=== PATIENT | female | born 1995 | race Asian ===

== ENCOUNTER 2022-07-05 11:59 | Emergency (ER) | payer SELFPAY ==
[2022-07-05 12:09] VITALS: BP 124/79; PULSE 79; RESP 18; TEMP 36.6; O2SAT 100
[2022-07-05 12:30] LABS: Bilirubin Negative (Negative); Blood Negative (Negative); Clarity Clear (Clear); Glucose Negative (Negative); Ketones Negative (Negative); Leukocyte Esterase Negative (Negative); Nitrite Negative (Negative); Specific Gravity 1.025 (1.005-1.025); Urobilinogen 0.2 EU/dL (Up TO 0.2)
--- NOTE | 2022-07-05 12:31 | W.ED.GENAD ---
Discharge Plan Disposition Patient Disposition: HOME Condition: Stable Discharge Details Clinical Impression: Pelvic pain Primary Care Provider: [place],Local ED Provider: Elaine Dunlap Home Meds and New Rx's Prescriptions: New doxycycline hyclate 100 mg tablet 100 mg PO BID 7 Days Qty: 14 0RF Discharge Instructions Instructions: Pelvic Pain in Women (ED) Additional Instructions: At this time the cultures are pending. Take the antibiotics twice daily as directed for the next 7 days. Take it with yogurt or probiotic. Do not take on an empty stomach. Follow up with primary care provider in 3-5 days. Return to ED sooner if any worsening or concerns. Increase oral fluids. Please take Tylenol or Ibuprofen with food every 4-6 hours as needed for pain and swelling. No significant lesions or masses were observed during the examination. If you have continued symptoms please make an appointment with women's wellness. Referrals: Myra Meredith CNM [[facility] NURSE RIVET HAMMER MACHINE OPERATOR] - 3 days Discharge Data Discharge Date/Time-TO BE ENTERED AT DEPARTURE: 07/05/22 13:48 Medical Decision Making 26-year-old female presents to the ER with chief complaint of vaginal pain lower abdominal pain she has been ongoing for the last 3 days. Patient presents with her significant other she noticed a bump on her vagina which she describes as a hernia. test is negative, urinalysis shows no leukocytes no nitrites no evidence of UTI. Gonorrhea Chlamydia and vaginal pathogen ordered. 53: Pelvic exam performed with Oma Schwab RN as witness, patient tolerated well. There was some white discharge, no significant lesions or bleeding. No suspicious lesions or masses noted. No adnexal tenderness. Abdomen is soft nontender with palp Doxycycline ordered pending culture results. Vaginal pathogen swab was no good per Lab due to vial being broken, sample thrown out. This text was generated using [employer] dictation system, please disregard any oddities of phrase or misspellings. HPI General Mode of arrival: ambulatory. Date/Time Provider Initiated Documentation: 07/05/22 12:16. Limitations to Documentation: no limitations. Information obtained by: patient, family (Hisband) and RN notes reviewed. HPI Narrative: 26-year-old female presents to the ER with chief complaint of vaginal pain lower abdominal pain she has been ongoing for the last 3 days. Patient presents with her significant other she noticed a bump on her vagina which she describes as a hernia. Patient reports that she is having cramping in her vagina. They have noticed a yellow discharge. Related Data Home Medications Medication Instructions Recorded Confirmed doxycycline hyclate 100 mg tablet 100 mg PO BID 7 days #14 tabs 07/05/22 Previous Rx's Medication Instructions Recorded doxycycline hyclate 100 mg tablet 100 mg PO BID 7 days #14 tabs 07/05/22 General Stated Complaint: FOREST OFFICER VLADIMIR: 3 Review of Systems All systems reviewed & are unremarkable except as noted in HPI and below Genitourinary Genitourinary: Denies dysuria, Reports pelvic pain and Reports vaginal discharge PFSH All Active Problems (Updated 07/05/22 @ 13:10 by Elaine Dunlap NP) Pelvic pain (Acute) Social History Smoking/Tobacco Use Status: Unknown Smoking risk assessment performed?: Yes Exam Const General: cooperative, healthy appearing and comfortable Nutritional Appearance: average body habitus and well nourished Orientation: alert, awake and oriented x3 External Female Exam: normal external appearance, normal appearance of the urethra, no external swelling and no lesions Speculum Exam - Vagina: normal appearance of the vagina, abnormal vaginal discharge white, not erythematous, No vaginal bleeding and no masses Speculum Exam - Cervix: normal appearance of the cervix, closed and normal vervical discharge Bimanual Exam- Vagina & Uterus: normal bimanual exam, normal palpation and uterine size normal Bimanual Exam- Adnexa, other: normal adnexae OB/External & Speculum: No vaginal bleeding Course Vital Signs Vital signs: Vital Signs Temperature 36.6 C 07/05/22 12:09 Pulse 79 07/05/22 12:09 Respiratory Rate 18 07/05/22 12:09 Blood Pressure 124/79 07/05/22 12:09 Pulse Oximetry 100 07/05/22 12:09 Temperature 36.6 C 07/05/22 12:09 Temperature Source Temporal Artery Scan 07/05/22 12:09 Pulse 79 07/05/22 12:09 Respiratory Rate 18 07/05/22 12:09 Blood Pressure 124/79 07/05/22 12:09 Pulse Oximetry 100 07/05/22 12:09 Lab/Test Results Lab/Test Results: Laboratory Tests Range/Units 07/05/22 12:15 Urine Color (Yellow) Yellow Urine Clarity (Clear) Clear Urine pH (5-8) 7.0 Ur Specific [place] (1.005-1.025) 1.025 Urine Protein (Negative) mg/dL Negative Urine Ketones (Negative) mg/dL Negative Urine Blood (Negative) Negative Urine Nitrite (Negative) Negative Urine Bilirubin (Negative) Negative Urine Urobilinogen (Up TO 0.2) EU/dL 0.2 Ur Leukocyte Esterase (Negative) Negative Urine Glucose (Negative) mg/dL Negative POC- Test(urine) Negative
[2022-07-05 13:45] VITALS: BP 124/79; PULSE 79; RESP 18; TEMP 36.6; O2SAT 100
--- NOTE | 2022-07-05 14:58 | NUR.NOTE ---
Nursing Note: Referral to Care Management for needs PCP; for establish care with routine follow up.
--- NOTE | 2022-07-07 09:15 | NUR.NOTE ---
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 Patient could be heard in the background. Test results have not been completed. They are a send out and take 3 to 5 working days, and he was told this. He then went on to complain about the patient visit, that the DRILL INSTRUCTOR did not know what she was doing, that she gave medication before the tests results were back and that he did not want the patient lifting and wanted a note regarding this. I told him that they should have explained the lifting at the visit to the practitioner, and that I could not answer to his concerns about the visit. I offered to him to speak to Health And Physical Education Teacher. He then said that he should have taken her to [place] instead of here. I told him to call Tuesday for the results that they should be back by then.
--- NOTE | 2022-07-07 10:08 | W.ED.FU ---
Date of service: 07/07/22 Time of Service: 10:08 Follow Up Plan: Patient and significant other first call the ER and then subsequently presented to the ER requesting a work note. She is not requesting to be seen here in the ER at this time. Reports that she is still not feeling well and would like a work note provided, will provide a work note for today. Encouraged to return to the ER for new or worsening symptoms
--- NOTE | 2022-07-07 10:14 | NUR.NOTE ---
Nursing Note: See Zari Calzada addendum regarding work note. Work note given to patient and told to f/u with PCP for further ongoing care. 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 Explained that a referral was given to Care Management to get her a PCP appt. and that it would not take as long for the CM team as it might for them. To call the CM team to see where they are at with getting her a PCP appt.
[2022-07-07 11:44] LABS: Chlamydia Result Invalid (Negative); GC Result Invalid (Negative)
== END 2022-07-05 13:48 | disposition home or self-care (01) ==
PROVIDERS: Emergency Provider Registered Nurse Emergency
DX: R10.2 Pelvic and perineal pain (principal)
CPT/HCPCS: 81025; 87491; 87591; 99283; 81003; 87480; 87510; 87660; 99282

== ENCOUNTER 2022-09-27 16:52 | Outpatient (REF) | payer MEDICAID, SELFPAY ==
[2022-09-27 18:35] LABS: Abs Immature Grans 0.07 10^3/uL (0.0-0.06); Absolute Basophil Count 0.07 10^3/uL (0.0-0.2); Absolute Lymphocyte Count 2.77 10^3/uL (1.2-3.4); Absolute Monocyte Count 0.99 10^3/uL (0.1-0.8); Absolute Neutrophil Count 7.94 10^3/uL (1.2-6.7); Basophils % 0.6; Eosinophils % 1.7; HCT 44.3 % (36.0-46.0); HGB 14.8 g/dL (11.2-15.7); Immature Grans % 0.6; MCH 30.8 pg (27.0-33.0); MCHC 33.4 % (32.0-36.0); MCV 92 fL (80-95); MPV 11.2 fL (8.0-11.0); Monocytes % 8.2; Neutrophils % 65.9; Platelet Count 298 10^3/uL (130-400); RDW-SD 41.1 fL; WBC 12.05 10^3/uL (4.4-10.8)
== END 2022-09-27 16:53 | disposition home or self-care (01) ==
LOC: LBN 16:52
PROVIDERS: Visit Provider Nurse Practitioner Family
DX: N91.2 Amenorrhea, unspecified (principal); R42 Dizziness and giddiness
CPT/HCPCS: 84702; 85025

== ENCOUNTER → 2022-10-05 02:44 | Outpatient (CLI) | payer MEDICAID, SELFPAY ==
--- NOTE | 2022-10-05 09:15 | DI.US_ITS ---
Exam(s) US OB 1ST TRIMESTER EXAM: US OB 1ST TRIMESTER CLINICAL HISTORY: AMENORRHEA, N91.2. COMPARISON: No exams were available for comparison TECHNIQUE: Transabdominal Transvaginal first trimester obstetrical ultrasound performed. FINDINGS: Sonographic images demonstrate a single intrauterine gestation. A yolk sac and pole are seen. Sonographically assessed gestational age based upon crown-rump length of 1.6 cm is: 8 weeks 0 days Estimated date of delivery based on this ultrasound is: 05/17/2023. heart rate motion is Dopplered at: 169 bpm. No free fluid identified. Pelvic Measurments Uterus: 8.8 x 5.6 x 7.8 cm Rt Ovary: 2.4 x 1.5 x 1.9 cm Lt Ovary: The left ovary was not visualized sonographically. No left at necks all masses are seen. IMPRESSION: Single live intrauterine gestation as above. Estimated gestational age is 8 weeks 0 days. DATA REPOSITORY:
== END ==
PROVIDERS: Visit Provider Nurse Practitioner Family
DX: O20.9 Hemorrhage in early pregnancy, unspecified (principal)
CPT/HCPCS: 76801

== ENCOUNTER 2022-11-09 15:47 | Outpatient (REF) | payer MEDICAID, SELFPAY ==
--- NOTE | 2022-11-09 14:26 | PAPFT_PTH ---
PATIENT: Hannah Feliciano LOC: [facility] U#:[id number] AGE/SX: 26/F ROOM: RE11/09/[address]: Myra Sandhu : 1995 BED: DIS: 11/09/2022 SPEC #: [id number] RECD: 11/09/22 17:26 STATUS: MURPHY REChase #: [id number] CELINA: 11/09/22 14:[address]: Myra Sandhu DEPT: [facility] Cytology RECD BY: Nishi Gil ENTERED: 11/09/22 17:26 SP TYPE: PAPFT CHANO DR: Katy Garcia Tissues: 1 - CX/ENDOCX FOR PAP SMEARS Procedures: PAP THIN PREP/UVM Screening Comments: [id number]
[2022-11-11 13:22] LABS: Chlamydia Result Negative (Negative); GC Result Negative (Negative)
== END 2022-11-09 15:48 | disposition home or self-care (01) ==
LOC: LBN 15:47
PROVIDERS: Visit Provider Advanced Practice Midwife
DX: Z34.91 Encounter for supervision of normal pregnancy, unspecified, first trimester (principal); Z11.3 Encounter for screening for infections with a predominantly sexual mode of transmission; Z12.4 Encounter for screening for malignant neoplasm of cervix; Z3A.13 13 weeks gestation of pregnancy
CPT/HCPCS: 87491; 87591; 88142; 87086; 87480; 87510; 87660

== ENCOUNTER 2022-11-09 20:14 | Outpatient (CLI) | payer MEDICAID, SELFPAY ==
[2022-11-09 15:44] LABS: Panorama Kit Sent via Fed Ex
[2022-11-09 15:50] LABS: Abs Immature Grans 0.04 10^3/uL (0.0-0.06); Absolute Basophil Count 0.04 10^3/uL (0.0-0.2); Absolute Eosinophil Count 0.13 10^3/uL (0.0-0.7); Absolute Lymphocyte Count 2.28 10^3/uL (1.2-3.4); Absolute Monocyte Count 0.71 10^3/uL (0.1-0.8); Basophils % 0.3; Eosinophils % 1.1; HCT 40.1 % (36.0-46.0); HGB 13.7 g/dL (11.2-15.7); Immature Grans % 0.3; Lymphocytes % 19.1; MCH 30.5 pg (27.0-33.0); MCHC 34.2 % (32.0-36.0); MCV 89 fL (80-95); MPV 10.3 fL (8.0-11.0); Monocytes % 5.9; Neutrophils % 73.3; Platelet Count 269 10^3/uL (130-400); RBC 4.49 10^6/uL (3.93-5.22); RDW 11.7 % (11.7-14.6); RDW-SD 37.8 fL; WBC 11.95 10^3/uL (4.4-10.8)
[2022-11-09 15:55] LABS: Absolute Neutrophil Count 8.76 10^3/uL (1.2-6.7)
[2022-11-09 16:48] LABS: TSH (W/Ref FT4) 0.81 uIU/mL (0.36-3.74)
[2022-11-10 10:02] LABS: Hepatitis C Ab w Rflx HCV PCR Negative (Negative)
[2022-11-10 10:09] LABS: Hepatitis B Surface Ag Negative (Negative)
[2022-11-10 10:28] LABS: HIV-1/2 Ag & Ab Screen Negative (Negative)
[2022-11-10 10:36] LABS: Varicella IgG Antibody Positive (See Note)
[2022-11-10 10:45] LABS: Rubella IgG Ab (UVM) Positive (See Note)
[2022-11-11 15:43] LABS: Syphilis IgG w/Reflex Nonreactive (Nonreactive)
[2022-12-15 13:30] LABS: Lab Add On Test DONE
== END 2022-11-09 20:15 | disposition home or self-care (01) ==
LOC: LBO 20:14
PROVIDERS: Visit Provider Advanced Practice Midwife
DX: Z34.91 Encounter for supervision of normal pregnancy, unspecified, first trimester; Z83.49 Family history of other endocrine, nutritional and metabolic diseases
CPT/HCPCS: 36415; 86787; 86803; 86850; 86900; 86901; 87340; 87389; 84443; 85025; 86762; 86780

== ENCOUNTER 2023-02-22 02:58 | Outpatient (CLI) | payer MEDICAID, SELFPAY ==
[2023-02-22 11:30] LABS: Abs Immature Grans 0.06 10^3/uL (0.0-0.06); Absolute Basophil Count 0.05 10^3/uL (0.0-0.2); Absolute Lymphocyte Count 2.08 10^3/uL (1.2-3.4); Absolute Monocyte Count 1.03 10^3/uL (0.1-0.8); Basophils % 0.4; Eosinophils % 1.2; HCT 37.2 % (36.0-46.0); HGB 12.5 g/dL (11.2-15.7); Immature Grans % 0.5; Lymphocytes % 16.1; MCH 30.8 pg (27.0-33.0); MCHC 33.6 % (32.0-36.0); MCV 92 fL (80-95); MPV 10.2 fL (8.0-11.0); Neutrophils % 73.8; Platelet Count 273 10^3/uL (130-400); RBC 4.06 10^6/uL (3.93-5.22); RDW 12.1 % (11.7-14.6); RDW-SD 40.8 fL; WBC 12.93 10^3/uL (4.4-10.8)
[2023-02-22 11:34] LABS: Absolute Eosinophil Count 0.16 10^3/uL (0.0-0.7); Absolute Neutrophil Count 9.54 10^3/uL (1.2-6.7)
[2023-02-22 11:39] LABS: Glucose,1 Hr (Glucola) 96 mg/dL (80-140)
[2023-02-22 11:44] LABS: ALT 17 U/L (14-59); AST 11 U/L (15-37); Albumin 2.9 g/dL (3.4-5.0); Alkaline Phosphatase 105 U/L (46-116); Anion Gap 9.7 mmol/L (3-11); BUN 5 mg/dL (7-18); Bilirubin, Total 0.2 mg/dL (0.2-1.0); CO2 23.3 mmol/L (21.0-32.0); CREATININE 0.5 mg/dL (0.55-1.02); Calcium 9.1 mg/dL (8.5-10.1); Chloride 105 mmol/L (98-107); Estimated GFR 131.75 (mL/min/1.73m2); Glucose 99 mg/dL (74-106); Potassium 3.8 mmol/L (3.5-5.1); Sodium 138 mmol/L (136-145); Total Protein 6.7 g/dL (6.4-8.2)
== END 2023-02-22 02:59 | disposition home or self-care (01) ==
LOC: LBO 02:58
PROVIDERS: Visit Provider Obstetrics & Gynecology
DX: O34.219 Maternal care for unspecified type scar from previous cesarean delivery; Z3A.28 28 weeks gestation of pregnancy
CPT/HCPCS: 36415; 80053; 82950; 85025

== ENCOUNTER 2023-02-22 11:24 | Outpatient (REF) | payer MEDICAID, SELFPAY ==
[2023-02-22 12:40] LABS: COMMENT (LAB VIEW ONLY) 158.24 mg/dL; PROTEIN 28.8 mg/dL; Prot/Crea Ur Ratio 0.18
[2023-02-22 12:43] LABS: *AMPHETAMINES SCREEN URINE Negative (Negative); *BARBITURATES SCREEN URINE Negative (Negative); *BENZODIAZEPINES SCREEN URINE Negative (Negative); Cannabinoids THC Negative (Negative); Cocaine Screen,Urine Negative (Negative); METHADONE URINE SCREEN Negative (Negative); OPIATES URINE SCREEN Negative (Negative); Tricyclic Antidepressants Negative (Negative)
[2023-02-26 15:45] LABS: Buprenorphine Negative ng/mL (Cutoff: 5.0)
== END 2023-02-22 11:25 | disposition home or self-care (01) ==
LOC: LBN 11:24
PROVIDERS: Visit Provider Obstetrics & Gynecology
DX: O13.3 Gestational [pregnancy-induced] hypertension without significant proteinuria, third trimester (principal); Z3A.28 28 weeks gestation of pregnancy
CPT/HCPCS: 80307; 80348; 82565; 84156

== ENCOUNTER 2023-02-25 20:49 | Outpatient (CLI) | payer MEDICAID, SELFPAY ==
[2023-02-25 20:20] VITALS: BP 124/62; PULSE 81; RESP 18; TEMP 36.8
[2023-02-25 20:30] VITALS: BP 124/62; PULSE 81; RESP 18; TEMP 36.8
[2023-02-25] MEDS: Ketorolac 15 MG/ML VIAL IVP (21:15)
[2023-02-25] MEDS: Ondansetron 4 MG/2 ML VIAL IVP (21:15)
[2023-02-25 21:19] LABS: HCT 33.6 % (36.0-46.0); HGB 11.5 g/dL (11.2-15.7); MCH 31.3 pg (27.0-33.0); MCHC 34.2 % (32.0-36.0); MCV 92 fL (80-95); MPV 10.4 fL (8.0-11.0); Platelet Count 251 10^3/uL (130-400); RBC 3.67 10^6/uL (3.93-5.22); RDW 12.1 % (11.7-14.6); WBC 12.96 10^3/uL (4.4-10.8)
[2023-02-25] MEDS: Lactated Ringers 1,000 ML 125 ML IV (21:19)
[2023-02-25 21:35] LABS: ALT 16 U/L (14-59); AST 12 U/L (15-37); Albumin 2.7 g/dL (3.4-5.0); Alkaline Phosphatase 99 U/L (46-116); BUN 7 mg/dL (7-18); Bilirubin, Total 0.1 mg/dL (0.2-1.0); CREATININE 0.5 mg/dL (0.55-1.02); Calcium 8.8 mg/dL (8.5-10.1); Chloride 104 mmol/L (98-107); Estimated GFR 131.75 (mL/min/1.73m2); Glucose 95 mg/dL (74-106); Potassium 3.4 mmol/L (3.5-5.1); Sodium 135 mmol/L (136-145); Total Protein 6.5 g/dL (6.4-8.2)
[2023-02-25 22:20] LABS: COMMENT (LAB VIEW ONLY) 29.71 mg/dL; PROTEIN < 6.0 mg/dL
--- NOTE | 2023-02-25 22:58 | HPE_ITS ---
Date of service: 02/25/23 Time of Service: 22:58 Assessment and Plan Assessment and plan (1) Nausea and vomiting during : Status: Acute Assessment and plan: No evidence of gastrointestinal infection. Patient was instructed to call with further episodes of nausea and vomiting and she will be prescribed ondansetron as needed. (2) Elevated blood pressure complicating in second trimester, antepartum: Status: Acute Assessment and plan: Evaluations 3 days apart showed no evidence of preeclampsia. She will return to the office March 09 or as needed. (3) Headache in : Status: Acute Assessment and plan: Secondary to dehydration after poor fluid intake for 24 hours secondary to nausea and vomiting. Headache resolved with 1 dose of IV Toradol during her period of observation on the center. History of Present Illness History of Present Illness Chief Complaint: Headache, nausea and vomiting at 28 W3D EGA Narrative: Patient is a 27-year-old G3, P1 female currently 28W3D EGA who called the on- call provider to report a persistent diffuse headache not responsive to Tylenol that she had taken during the day. She also complains of nausea and vomiting. Patient denied any epigastric pain or lower extremity swelling she had been evaluated for a mildly elevated blood pressure of 135/80 at the time of her visit at 28 weeks. She was observed on the center had a reactive NST and her blood pressure normalized during her period of observation. CMP CBC urine protein creatinine ratio were all normal. Review of Systems All systems reviewed & are unremarkable except as noted in HPI and below Constitutional Constitutional: Reports headache(s) (Not localized not associated with aura), Reports malaise and Reports poor appetite ENT Ears, Nose, Mouth, and Throat: Reports headache(s) (Not localized not associated with aura) Gastrointestinal Gastrointestinal: Denies abdominal pain, Denies cramping, Reports nausea and Reports vomiting Genitourinary Genitourinary: Reports system reviewed and no additional complaints, except as documented Neurologic Neurologic: Reports headache(s) (Not localized not associated with aura) Comments: No scotomata patient does feel somewhat lightheaded when standing from a sitting position. Psychiatric Psychiatric: Reports system reviewed and no additional complaints, except as documented PFSH All Active Problems (Updated 02/25/23 @ 23:15 by Vandana Wu MD) Headache in (Acute) Elevated blood pressure complicating in second trimester, antepartum (Acute) Nausea and vomiting during (Acute) Prior with demise (Acute) Transfusion history (Acute) 5 units after demise Family history of thyroid disease (Acute) Previous delivery affecting (Acute) (Acute) Medical History (Updated 02/25/23 @ 23:15 by Vandana Wu MD) Alcohol abuse, in remission Surgical History (Updated 11/09/22 @ 15:24 by Myra Sandhu CNM) Previous section Family History (Updated 11/09/22 @ 15:25 by Myra Sandhu CNM) Maternal Grandmother Thyroid disease Heart disease enlarged heart Father Heart disease Hepatitis Social History Smoking/Tobacco Use Status: Unknown Smoking risk assessment performed?: Yes History History 3 Para 1 Hx # Term Pregnancies Multiple births Hx # Pregnancies 1 Ectopic pregnancies AB induced Hx Number of Living Children 1 AB spontaneous Past Pregnancies Del. Date GA/Weeks # Preg Succ Route Wgt Sex Labor Lgth Anesth esia Location [facility] 02/28/14 Yes No [facility] 09/15/17 41 No Yes [facility] Delivery Date: 02/28/14 Last Updated by: Myra Sandhu CNM alcoholic, demise with hemorrhage, transfused for 5 units Delivery Date: 09/15/17 Last Updated by: Myra Sandhu CNM scheduled for post dates. vertical incision Meds Allergies and Home Medications Allergies Allergy/AdvReac Type Severity Reaction Status Date / Time No Known Allergies Allergy Verified 02/22/23 10:31 Home Medications Medication Instructions Recorded Confirmed Type vitamin with calcium 1 tab PO DAILY #90 tabs 11/09/22 02/01/23 Rx no.72-iron 27 mg-folic acid 1 mg tablet Exam Narrative Exam Narrative: Patient arrived on the center and had labs drawn and IV hydration started. She received 4 mg of ondansetron IV and 15 mg of Toradol IV. Her nausea and headache subsided and she was able to tolerate liquids. Const General: no acute distress Nutritional Appearance: well nourished Orientation: alert, awake and oriented x3 Resp Effort & Inspection: normal respiratory effort Auscultation: clear to auscultation bilaterally Cardio Rate: regular rate Rhythm: regular rhythm GI Inspection: normal to inspection (Gravid.) Palpation: no hepatosplenomegaly and nontender (No focal tenderness.) Rectal Exam - female: deferred General: deferred Other: heart rate 140 range with reactive NST category 1. No contractions on ex ternal tocometer Skin General skin exam: no rashes or lesions noted (Tattoos) Neuro General: deep tendon reflexes 2+ bilaterally (1 beat of clonus bilaterally) Cognition: normal cognition Speech: speech normal Gait: normal gait Extrem General: normal to inspection, no pedal edema and no calf tenderness Psych Appearance: grossly normal Mental Status: mental status grossly normal Speech and Movement: speech and movement normal Mood: congruent mood Affect: normal affect Results Labs 02/25/23 21:14 02/25/23 21:14 Labs: Laboratory Results - last 24 hr 02/25/23 02/25/23 02/25/23 21:14 21:14 22:02 WBC 12.96 H RBC 3.67 L Hgb 11.5 Hct 33.6 L MCV 92 MCH 31.3 MCHC 34.2 RDW 12.1 Plt Count 251 MPV 10.4 Sodium 135 L Potassium 3.4 L Chloride 104 Carbon Dioxide 22.0 Anion Gap 9.0 BUN 7 Creatinine 0.5 L Est GFR (CKD-EPI 2020) 131.75 Glucose 95 Calcium 8.8 Total Bilirubin 0.1 L AST 12 L ALT 16 Alkaline Phosphatase 99 Total Protein 6.5 Albumin 2.7 L Ur Random Creatinine 29.71 U Random Total Protein < 6.0 U [place] Prot/Creat Ratio 02/25/23 Unknown WBC Cancelled RBC Cancelled Hgb Cancelled Hct Cancelled MCV Cancelled MCH Cancelled MCHC Cancelled RDW Cancelled Plt Count Cancelled MPV Cancelled Sodium Potassium Chloride Carbon Dioxide Anion Gap BUN Creatinine Est GFR (CKD-EPI 2020) Glucose Calcium Total Bilirubin AST ALT Alkaline Phosphatase Total Protein Albumin Ur Random Creatinine U Random Total Protein U [place] Prot/Creat Ratio Last Vital Signs Temp 98.2 F 02/25/23 20:30 Pulse 81 02/25/23 20:30 Resp 18 02/25/23 20:30 BP 124/62 02/25/23 20:30 Time Spent Time spent with Patient: <40 minutes Time was spent: obtaining and/or reviewing separately otained hiistory, ordering medications,tests, procedures and counseling the patient
== END 2023-02-25 23:20 | disposition home or self-care (01) ==
LOC: OBS 20:57 → BCD 03-22 14:32
PROVIDERS: Visit Provider Obstetrics & Gynecology Gynecology
DX: O21.2 Late vomiting of pregnancy (principal); Z3A.28 28 weeks gestation of pregnancy; R51.9 Headache, unspecified; O26.893 Other specified pregnancy related conditions, third trimester; O16.3 Unspecified maternal hypertension, third trimester
CPT/HCPCS: 80053; 85027; 96360; 96361; 96374; 96375; 59025; 82565; 84156; G0378; J1885; J2405

== ENCOUNTER 2023-03-02 18:58 | Outpatient (CLI) | payer MEDICAID, SELFPAY ==
[2023-03-02 20:25] VITALS: BP 121/56; PULSE 82
[2023-03-02 20:27] VITALS: BP 121/56; PULSE 82; TEMP 208.2; TEMP 97.9
[2023-03-02 20:41] LABS: Abs Immature Grans 0.06 10^3/uL (0.0-0.06); Absolute Basophil Count 0.05 10^3/uL (0.0-0.2); Absolute Lymphocyte Count 2.59 10^3/uL (1.2-3.4); Basophils % 0.4; Eosinophils % 1.3; HCT 34.6 % (36.0-46.0); HGB 11.8 g/dL (11.2-15.7); Immature Grans % 0.5; Lymphocytes % 20.5; MCH 31.1 pg (27.0-33.0); MCHC 34.1 % (32.0-36.0); MCV 91 fL (80-95); MPV 10.6 fL (8.0-11.0); Monocytes % 7.1; Neutrophils % 70.2; Platelet Count 277 10^3/uL (130-400); RDW 12.1 % (11.7-14.6); RDW-SD 40.2 fL; WBC 12.61 10^3/uL (4.4-10.8)
[2023-03-02 20:44] LABS: Absolute Eosinophil Count 0.16 10^3/uL (0.0-0.7); Absolute Neutrophil Count 8.85 10^3/uL (1.2-6.7)
[2023-03-02 20:56] LABS: ALT 17 U/L (14-59); AST 15 U/L (15-37); Albumin 2.8 g/dL (3.4-5.0); Alkaline Phosphatase 115 U/L (46-116); Anion Gap 11.7 mmol/L (3-11); BUN 6 mg/dL (7-18); Bilirubin, Total 0.2 mg/dL (0.2-1.0); CO2 22.3 mmol/L (21.0-32.0); CREATININE 0.5 mg/dL (0.55-1.02); Calcium 9.2 mg/dL (8.5-10.1); Chloride 108 mmol/L (98-107); Estimated GFR 131.75 (mL/min/1.73m2); Glucose 94 mg/dL (74-106); Potassium 3.9 mmol/L (3.5-5.1); Sodium 142 mmol/L (136-145); Total Protein 6.8 g/dL (6.4-8.2)
--- NOTE | 2023-03-02 21:03 | PGE_ITS ---
Date of Service Date of service: 03/02/23 Time of Service: 21:03 Assessment and Plan Assessment and plan (1) Headache in : Status: Acute Assessment and plan: Patient has a headache without signs or symptoms of preeclampsia. Impression is that of sinus pressure and congestion. Sent was given and prescription sent to the pharmacy. Encouraged to use occasional Sudafed. Follow-up as scheduled. Signs and symptoms of preeclampsia discussed all questions were answered (2) Previous delivery affecting : Status: Acute (3) : Status: Acute Subjective Subjective Interval history since last seen: Patient presenting for center at 29 weeks with cephalgia. She had a similar episode a week ago. She has been taking Tylenol around the past 24 hours has no t improved. She states that when she stands up suddenly she does have some visual disturbances. Baby's been moving and active. Blood pressure is normal. Laboratory studies are normal. She will receive Fioricet prior to discharge. Prescription for Fioricet was sent to the pharmacy. She was also encouraged to use Sudafed [id number] for some sinus congestion Exam Const General: cooperative, healthy appearing, comfortable and no acute distress Nutritional Appearance: average body habitus [facility] Head: normal to inspection Eyes General: appearance normal, both eyes and all related structures Resp Effort & Inspection: normal respiratory effort and no cough Cardio Rate: regular rate Rhythm: regular rhythm Extrem General: normal to inspection and no clubbing, cyanosis or edema Objective Laboratory Results - last 24 hr 03/02/23 03/02/23 20:32 20:32 WBC 12.61 H RBC 3.80 L Hgb 11.8 Hct 34.6 L MCV 91 MCH 31.1 MCHC 34.1 RDW 12.1 Plt Count 277 MPV 10.6 Immature Gran % 0.5 Neutrophils % 70.2 Lymphocytes % 20.5 Monocytes % 7.1 Eosinophils % 1.3 Basophils % 0.4 Nucleated RBC % 0.0 Absolute Neutrophils 8.85 H Absolute Lymphocytes 2.59 Absolute Monocytes 0.90 H Absolute Eosinophils 0.16 Absolute Basophils 0.05 Sodium 142 Potassium 3.9 Chloride 108 H Carbon Dioxide 22.3 Anion Gap 11.7 H BUN 6 L Creatinine 0.5 L Est GFR (CKD-EPI 2020) 131.75 Glucose 94 Calcium 9.2 Total Bilirubin 0.2 AST 15 ALT 17 Alkaline Phosphatase 115 Total Protein 6.8 Albumin 2.8 L Time Spent with Patient Time Spent with Patient: 25-34 minutes Time was spent: preparing to see the patient(eg.review tests), obtaining and/or reviewing separately otained hiistory, ordering medications,tests, procedures, indepentently interpreting results and counseling the patient
[2023-03-02] MEDS: Butalbital/Acetaminophen/Caffeine 50/325/40 TAB PO (21:13)
== END 2023-03-02 21:17 | disposition home or self-care (01) ==
LOC: BCD 18:59 → OBS 20:19
PROVIDERS: Visit Provider Obstetrics & Gynecology
DX: O26.893 Other specified pregnancy related conditions, third trimester (principal); R51.9 Headache, unspecified
CPT/HCPCS: 80053; 59025; 85025

== ENCOUNTER 2023-04-01 00:41 | Outpatient (CLI) | payer MEDICAID, SELFPAY ==
--- NOTE | 2023-04-01 08:15 | DI.US_ITS ---
Exam(s) US OB ESTELITA WEIGHT EXAM: US OB ESTELITA WEIGHT CLINICAL HISTORY: growth and ESTELITA,H/O DEMISE,o09.299,o34.219. TECHNIQUE: Transabdominal obstetrical ultrasound performed. COMPARISON: US US OB 1ST TRIMESTER from 10/05/2022 FINDINGS:: Number of fetuses: One. position: Vertex. Placental location: Posterior. No evidence of previa. BIOMETRIC DATA: BPD: 84mm = 33+4 weeks HC: 316mm = 35+3 weeks AC: 304mm = 34+2 weeks FL: 65 mm = 33+4 weeks EFW: 2359 Gms = 64% Composite Age: 34+2 weeks EDC: 11 May 2023 Heart Rate: 136BPM Amniotic fluid index: 17.3 cm. Amount of fluid is visually within normal limits. IMPRESSION: size and weight are within the expected range. DATA REPOSITORY:
== END 2023-04-01 01:01 ==
LOC: DI 00:41
PROVIDERS: Visit Provider Obstetrics & Gynecology
DX: O09.293 Supervision of pregnancy with other poor reproductive or obstetric history, third trimester (principal); O34.219 Maternal care for unspecified type scar from previous cesarean delivery
CPT/HCPCS: 76816

== ENCOUNTER 2023-04-15 09:51 | Outpatient (REF) | payer MEDICAID, SELFPAY | END 2023-04-15 09:52 | disposition home or self-care (01) | LOC: LBN 09:51 | PROVIDERS: Visit Provider Obstetrics & Gynecology | DX: Z34.91 Encounter for supervision of normal pregnancy, unspecified, first trimester (principal); Z36.85 Encounter for antenatal screening for Streptococcus B; Z3A.35 35 weeks gestation of pregnancy | CPT/HCPCS: 87081 ==

== ENCOUNTER 2023-05-08 07:47 | Outpatient (CLI) | payer MEDICAID, SELFPAY ==
[2023-05-08 08:15] VITALS: BP 113/69; PULSE 78; TEMP 36.8
--- NOTE | 2023-05-08 11:27 | W.OBNST ---
Date of service: 05/08/23 Time of Service: 11:28 NST Evaluation Reason for NST Reasons for Nonstress Test: OTHER, SEE COMMENT Reason for NST Other: R/O labor Gestational Age Gestational Age in Weeks and Days: 39 Weeks and 4Days Test and Monitor Explained Test/Monitor Explained: Test Explained, Monitor Explained and Patient Verbalized Understanding Vital Signs Blood Pressure: 113/69 Pulse: 78 Temperature: 98.2 F Urine Results Urine Protein: Negative Urine Ketones: Negative Urine Glucose: Negative Urine Blood: Negative NST Information Time on Monitor: 08:05 Date off Monitor: 05/08/23 Time off Monitor: 08:50 NST Interventions: None NST Evaluation Patient States Movement: Present FHR Baseline: 130 Variability: Moderate 6-25 bpm Accelerations: 15x15 Decelerations: None NST Results: Reactive Note Ultrasound Done: N/A. NST Note Note: Patient reported blood on toilet tissue after urinating earlier today. On presentation to the center she was comfortable not reacting to the contractions on the external tocometer. SVE: Closed posterior presenting part not palpable lower uterine segment not well developed. No evidence of copious bleeding. There was some pink-tinged vaginal discharge on the exam glove. No further increase in vaginal discharge during observation. Patient was counseled regarding when to return to the center. She will follow-up on Tuesday for preop exam. NST Reviewed and Verified by: Vandana Wu
[2023-05-08 11:30] VITALS: BP 113/69; PULSE 78; TEMP 36.8
== END 2023-05-08 11:15 | disposition home or self-care (01) ==
LOC: BCD 07:48 → OBS 08:14
PROVIDERS: Visit Provider Obstetrics & Gynecology Gynecology
DX: O47.1 False labor at or after 37 completed weeks of gestation (principal); Z3A.39 39 weeks gestation of pregnancy
CPT/HCPCS: 59025

== ENCOUNTER 2023-05-09 21:38 | Inpatient (IN) | payer MEDICAID, SELFPAY ==
[2023-05-09 22:23] VITALS: BP 108/62; PULSE 86; RESP 18; TEMP 36.9
--- NOTE | 2023-05-09 22:30 | HPE_ITS ---
Date of service: 05/09/23 Time of Service: 22:31 Assessment and Plan Assessment and plan (1) Previous delivery affecting : Status: Acute (2) Declines vaginal after trial: Status: Acute Assessment and plan: Preop counseling: She was informed of the risks of procedure including risk of damage to bowel, bladder, and blood vessels during the time of the delivery. If any of those injuries were to occur she may require a repair at the time of surgery or blood transfusion or possible hysterectomy. Informed consent was obtained the OR crew was notified preop labs drawn. Patient is clear that she does not desire permanent sterilization during this delivery. OB-HPI Labor/Delivery History of Present Illness Reason for Visit: RULE OUT LABOR Chief Complaint: Uterine Contractions; Scheduled Section , Inidcation for Scheduled : Previous .; Suspected Labor. MIGUEL Calculator Estimated Delivery Date Method Current WG Current Estimate 05/17/23 Ultrasound #1 38w 6d Other Estimates 05/11/23 Ultrasound #2 39w 5d History of Present Expected Delivery Route/Plan Prev c/s in [facility], unknown incision - FOB/partner - Tong Cuellar (has 3 previous children) Specific Issues/Plan 1. demise (2nd trimester) twins with hemorrhage requiring blood transfusion x 5 units 2. Previous in [facility] for CPD. Vertical skin incision. Low transverse uterine incision. 3 layer closure. Patient unsure if she wants vertical or transverse skin incision. - [facility] [place] 2 [place]: Great growth - Desires repeat CS -05/11/2023 3. History of alcoholism - in recovery 4. Genetic testing options reviewed - Panorama drawn, declines CF. 5. Does not want any future pregnancies. Partner James is considering a vasectomy. Pt declined tubal at 04/15 visit. Informed Consent Informed Consent: Section Delivery Review of Systems Narrative: Patient is a 27-year-old G3, P1 female currently at 38W6D EGA by first trimester ultrasound has been experiencing irregular contractions for the last 72 hours. She was evaluated on the center On 05/08/2023 at that time she was mattie irregularly cervix was closed. Small amount of blood-tinged vaginal discharge is present but no appreciable change in her cervix after several hours of observation. Order patient states that this time contractions 35 minutes apart and increasingly painful. She is advancing pressure. She was scheduled for a scheduled repeat delivery 05/11/2023. Patient has decided against having a permanent sterilization performed at that time. All systems reviewed & are unremarkable except as noted in HPI and below Respiratory Respiratory: Reports system reviewed and no additional complaints, except as documented Gastrointestinal Gastrointestinal: Denies nausea and Denies vomiting Comments: Patient reported eating approximately 2 hours ago Genitourinary Genitourinary: Reports abnormal vaginal bleeding Comments: Regular uterine contractions every 5 minutes Musculoskeletal Musculoskeletal: Reports system reviewed and no additional complaints, except as documented Neurologic Neurologic: Reports system reviewed and no additional complaints, except as documented Psychiatric Psychiatric: Reports system reviewed and no additional complaints, except as documented PFSH All Active Problems (Updated 02/25/23 @ 23:15 by Vandana Wu MD) Declines vaginal after trial (Acute) Headache in (Acute) Elevated blood pressure complicating in second trimester, antepartum (Acute) Nausea and vomiting during (Acute) Prior with demise (Acute) Transfusion history (Acute) 5 units after demise Family history of thyroid disease (Acute) Previous delivery affecting (Acute) (Acute) Medical History (Updated 02/25/23 @ 23:15 by Vandana Wu MD) Alcohol abuse, in remission Surgical History (Updated 05/09/23 @ 22:46 by Vandana Wu MD) Previous section Family History (Updated 11/09/22 @ 15:25 by Myra Sandhu CNM) Maternal Grandmother Thyroid disease Heart disease enlarged heart Father Heart disease Hepatitis Social History Smoking/Tobacco Use Status: Unknown Smoking risk assessment performed?: Yes History History 3 Para 1 Hx # Term Pregnancies Multiple births Hx # Pregnancies 1 Ectopic pregnancies AB induced Hx Number of Living Children 1 AB spontaneous Past Pregnancies Del. Date GA/Weeks # Preg Succ Route Wgt Sex Labor Lgth Anesth esia Location Prov [facility] 02/28/14 20 Yes No [facility] 09/15/17 40 No Yes 7 lb 11 oz Female P [facility] Delivery Date: 02/28/14 Last Updated by: Leatha Barton MD alcoholic, demise (@17wks or 5mo?) with hemorrhage, transfused for 5 units Delivery Date: 09/15/17 Last Updated by: Leatha Barton MD Scheduled CS for CPD. Vertical skin incision, LTCS per op note. Meds Allergies and Home Medications Allergies Allergy/AdvReac Type Severity Reaction Status Date / Time No Known Allergies Allergy Verified 05/06/23 14:32 Home Medications Medication Instructions Recorded Confirmed Type Unknown [No Known Home Meds] 05/06/23 05/06/23 History Exam Physical Exam Vital signs: Temp Pulse Resp BP 98.4 F 86 18 108/62 05/09/23 22:23 05/09/23 22:23 05/09/23 22:23 05/09/23 22:23 Vital Signs Reviewed: Yes Constitutional Constitutional: mild distress (Tolerating contractions well) Detailed Labor and Delivery Exam Dilation: 1 Effacement (%): 25 station: -3 Cervix position: posterior Consistency: medium Noguera Score: Cervical Points Exam 0 1 2 3 Dilation Closed 1-2cm 3-4 cm 5-6cm Effacement 0-30% 40-50% 60-70% 80% Consistency Firm Medium Soft Station -3 -2 -1,0 +1,+2 Position Posterior Mid Anterior Amniotic Membrane Status: Intact Contraction Frequency(min): 5-6 min Contraction Duration(sec): 60 Contraction Intensity: Mild/Moderate Fetus A Heart Rate Baseline: 140 Monitor Accelerations: 15 X 15 Monitor Decelerations: None Variability: Moderate (6-25 BPM) Presentation: Cephalic Categories: Category I Est. Weight: 7 lb 11 oz HEENT Exam HEENT Exam: Normal Neck Exam Neck Exam: Normal Chest/Brest/Axilla Exam Chest Exam: Not Done Breast Exam Breast Exam: Not Done Respiratory Exam Respiratory Exam: Normal Cardiovascular Exam Cardiovascular Exam: Normal Abdominal Exam Abdominal Exam: Normal Rectal Exam Rectal Exam: Not Done Exam Exam: Normal Extremities Exam Extremities Exam: Normal Back/Spine/Pelvis Exam Back Exam: Normal Pelvis Adequate: No Skin Exam Skin Exam: Normal Neurological Exam Neurological Exam: Normal Psychiatric Exam Psychiatric Exam: Normal Risk Assessment Risk for Shoulder Dystocia Historical/Initial OB: NEGATIVE FOR: Pelvic Abnormality, Pre- BMI>30, Previous Shoulder Dystocia or Previous Macrosomia Risk for Pre-Eclampsia Yes, if one or more: NEGATIVE FOR: Hx Pre-E/Gest HTN, Chronic HTN, Multiple Gestation, Pre-gestational DM, Renal Disease, Systemic Lupus or APA Syndrome Yes, if 2 or more: NEGATIVE FOR: Nulliparity, Age>= 35 yrs, >10yr btwn pregnancies, BMI>30, ethinicty, Mother/Sister w/ Pre-E or Previous IUGR Risk for Post- Hemorrhage Initial: POSITIVE FOR: Previous PPH Risks Reviewed Risks Reviewed Upon Admission: Yes
[2023-05-09 22:41] LABS: HGB 12.4 g/dL (11.2-15.7); MCH 31.2 pg (27.0-33.0); MCHC 34.4 % (32.0-36.0); MCV 91 fL (80-95); MPV 10.9 fL (8.0-11.0); Platelet Count 334 10^3/uL (130-400); RBC 3.97 10^6/uL (3.93-5.22); RDW 12.5 % (11.7-14.6); RDW-SD 41.1 fL; WBC 11.54 10^3/uL (4.4-10.8)
[2023-05-09] MEDS: Lactated Ringers 1,000 ML 200 ML IV (23:19)
[2023-05-09] MEDS: ceFAZolin 2 GM/50 ML BAG IVPB (23:45)
[2023-05-09] MEDS: AZITHROMYCIN 500 MG in Normal Saline 250 ML 250 MG IVPB (23:51)
[2023-05-10] VITALS (12 sets, daily range): BP systolic 96–144; BP diastolic 50–78; PULSE 60–93; RESP 18–20; TEMP 36.5–36.8; O2SAT 97–99; BMI 29.6
--- NOTE | 2023-05-10 00:09 | W.ANESNEU ---
Intrathecal Analgesia Date Performed: 05/09/23 Procedure Time: 23:30 Requesting Provider: Vandana Wu Procedure Location: Operating Room Reason Performed: Other () Standard Monitors Applied: ECG, Blood Pressure and SpO2 Patient Position: Sitting Timeout Performed: Yes Sedation Given (Indicate Dose Given): No Sedation given Patient Mental Status: Awake Sterility: Hand Hygiene, Surgical Cap, Surgical Mask, Sterile Gloves, Sterile Drape/Sheet and Chlorhexidine Placement Site: L3-L4 Interspace Spinal Needle Type: Sprotte 25 Gauge Needle Length: 3.5 Inch Spinal Procedure: Site Prepped, Sterile Drape Placed, 1% Lidocaine to skin and subcutaneous tissue with 25G needle, Introducer Needle Used, Spinal Needle Placed, Negative Heme, Positive CSF Flow and Medication Injected Paresthesia: None Spinal Local Anesthetic (Indicate Dose Given): Other Medication/Dose:: Bupivacaine 0.75mg (1.5cc) Additives (Indicate Dose Given): Fentanyl PF Dose:: 20mcg and Duramorph PF Dose:: 150mcg Ultrasound: Not Used Number of Attempts (See previous attempts in note section): 1 Procedure Tolerated: No Complications Procedure Outcome: Successful Performed By: Alexi Vallejo
--- NOTE | 2023-05-10 00:15 | W.ANESPRE ---
General Info Date of Service Date Performed: 05/09/23 Height: 5 ft 5 in Weight: 80.739 kg Body Mass Index (BMI): 29.6 Surgical Procedure: Operation Date: 05/09/23 22:40 Proposed Procedure Side Surgeon p Section Not Applicable Vandana Wu MD Actual Procedure Side Surgeon p Section Not Applicable Vandana Wu MD Pre-Op Diagnosis Post-Op Diagnosis (1) Previous delivery affecting : (2) Declines vaginal after trial: (1) Previous delivery affecting : (2) Declines vaginal after trial: Meds Allergies and Home Medications Allergies Allergy/AdvReac Type Severity Reaction Status Date / Time No Known Allergies Allergy Verified 05/06/23 14:32 Home Medication Medication Instructions Recorded Unknown [No Known Home Meds] 05/06/23 Current Visit Medications: Current Medications Generic Name Dose Route Start Last Admin Trade Name Freq PRN Reason Stop Dose Admin Citric Acid/Sodium Citrate 30 ml 05/09/23 23:00 Sodium Citrate 30 Ml Cup PO PREOP JAZMÍN Cefazolin Sodium/Dextrose 2 gm in 50 mls @ 100 mls/hr 05/09/23 22:30 05/09/23 23:45 Ancef Duplex IVPB 100 mls/hr PREOP JAZMÍN Administration Azithromycin 500 mg/ Sodium 250 mls @ 250 mls/hr 05/09/23 22:30 Chloride IVPB PREOP JAZMÍN Ringer's Solution 1,000 mls @ 200 mls/hr 05/09/23 22:30 IV INFUSION JAZMÍN Sodium Chloride 500 mls @ 0 mls/hr 05/09/23 22:24 Saline 500ml Bag IV PRN PRN As Directed IV Miscellaneous Supplies 1 each 05/09/23 22:30 Iv Access IV DIRECTED JAZMÍN Sodium Chloride 0 ml 05/09/23 22:24 Normal Saline Flush 10 Ml Syr IVP PRN PRN PFSH Active Problems Active Problems: Problem Status Onset Code Declines vaginal after trial O34.219 Headache in O26.899, R51.9 Elevated blood pressure complicating in second trimester, antepartum O16.2 Nausea and vomiting during O21.9 Prior with demise O09.299 Transfusion history Z92.89 Family history of thyroid disease Z83.49 Previous delivery affecting O34.219 Z34.90 Medical History Medical History (Updated 02/25/23 @ 23:15 by Vandana Wu MD) Alcohol abuse, in remission Surgical History Surgical History (Updated 05/09/23 @ 22:46 by Vandana Wu MD) Previous section Tobacco Smoking/Tobacco Use Status: Unknown Prental History History 3 Para 1 Hx # Term Pregnancies Multiple births Hx # Pregnancies 1 Ectopic pregnancies AB induced Hx Number of Living Children 1 AB spontaneous Past Pregnancies Del. Date GA/Weeks # Preg Succ Route Wgt Sex Labor Lgth Anesthesia Location [facility] 02/28/14 20 Yes No [facility] 09/15/17 40 No Yes 3486.991 g Female [facility] Delivery Date: 02/28/14 Last Updated by: Leatha Barton MD alcoholic, demise (@17wks or 5mo?) with hemorrhage, transfused for 5 units Delivery Date: 09/15/17 Last Updated by: Leatha Barton MD Scheduled CS for CPD. Vertical skin incision, LTCS per op note. Vital Signs and Lab Results Vital Signs Most Recent Vital Signs in EMR: Most Recent Vital Signs Temp Pulse Resp BP 36.9 C 86 18 108/62 05/09/23 22:23 05/09/23 22:23 05/09/23 22:23 05/09/23 22:23 Lab Results 05/09/23 22:34 Blood Type / Crossmatch: Patient ABO/Rh O Positive 05/09/23 Antibody Screen NEGATIVE 05/09/23 Complete Blood Count: White Blood Count 11.54 10^3/uL (4.4-10.8) H 05/09/23 22:34 Red Blood Count 3.97 10^6/uL (3.93-5.22) 05/09/23 22:34 Hemoglobin 12.4 g/dL (11.2-15.7) 05/09/23 22:34 Hematocrit 36.0 % (36.0-46.0) 05/09/23 22:34 Platelet Count 334 10^3/uL (130-400) 05/09/23 22:34 Complete Metabolic Panel: No Data to Display Liver Function Panel: No Data to Display Coagulation Panel: No Data to Display Cardiac Panel: No Data to Display Arterial Blood Gas: No Data to Display Venous Blood Gas: No Data to Display Pancreas Panel: No Data to Display Thyroid Panel: No Data to Display Infectious Disease: No Data to Display Blood Cultures: No Data to Display Toxicology Panel: No Data to Display Panel: No Data to Display Anesthesia Assessment and Plan Anesthesia History Personal History: No History of Anesthesia Complications Family History: No Family History of Anesthesia Complications Exercise Tolerance Exercise Tolerance: Metabolic Equivalents>4 Cardiac & Pulmonary Exam Cardiac Exam: Normal S1/S2 Heart Sounds Pulmonary Exam: Clear Bilateral Breath Sounds Implantable Cardiac Device Does patient have a Pacemaker or an ICD?: No Airway Exam Known Difficult Airway: No Mallampati Class: 2 Mouth Opening: Normal (> 3cm) Thyromental Distance: Greater than 3 cm Neck Range of Motion: Full ROM Neck Circumference: Normal Teeth Condition: Normal Dentition ASA Classification ASA Score: ASA 2 Emergency Case?: Yes NPO Status NPO Status: NPO Clears >2 hours, Solids >8 hours Status Status: Other (Full-term ) Anesthesia Plan Resuscitation Status: Full Code Anesthesia Technique: Spinal Anesthesia Airway Planned: Natural Airway Monitors Used: Standard Monitors
[2023-05-10] MEDS: Lactated Ringers 1,000 ML 200 ML IV (00:20)
[2023-05-10] MEDS: Bupivacaine 0.25% Pres-Free 30 ML VIAL (00:20)
--- NOTE | 2023-05-10 00:41 | W.PM.OP ---
Date of service: 05/10/23 Time of Service: 00:41 Operative Note Operative Note DATE OF PROCEDURE: 05/10/23 PRE-OP DIAGNOSIS: previous delivery. declined KAYLA. 38w4d EGA. POST-OP DIAGNOSIS: same SURGEON: Vandana Wu SENIOR FOREMAN: Kristie Johnson ANESTHESIA TYPE: Spinal Refer to Anesthesia Record ESTIMATED BLOOD LOSS: 250 PATHOLOGY: other (cord blood to lab) COMPLICATIONS: None Patient was transported to: floor Patient's condition: stable Indications: 27yo female who was scheduled for a elective scheduled repeat delivery on 05/11/23 had onset of painful regular contractions beginning earlier in the day and presented to with cervical change and q 5min contx on external tocometer. FHR category 1. During her antepartum care she declined a KAYLA and the option for bilateral salpingectomy at the time of the scheduled c/s. Findings: Viable male infant in cephalic position, clear amniotic fluid. WT: 2930gm APGARs: 8/9 Nl uterus, adnexa and pelvis. His parents intend to name him Haresh Procedure Description: Patient was taken to the operating room she is placed in the sitting position and spinal anesthesia was administered without difficulty. Preop antibiotics were administered She was then placed in the dorsal supine position with a leftward tilt. SCDs and a Cummins catheter to gravity drainage were in place. A vaginal prep with Betadine was performed and the patient was prepped and draped in the usual sterile fashion.Surgical timeout was performed. After a adequate level of anesthesia was achieved a Pfannenstiel skin incision was made approximately 2 cm superior to the pubic symphysis using a scalpel and the underlying subcutaneous tissue dissected using Bovie electrocautery to the level of the rectus fascia. The rectus fascia was then nicked in the midline and the fascial incision extended laterally using curved Helms scissors. 2 Dontrell clamps were applied to the inferior rectus fascia and the rectus fascia was dissected off of the underlying rectus muscles using Bovie electrocautery and blunt technique. A similar technique was carried out on the superior rectus fascia. Rectus muscles were then in the midline and the peritoneum entered bluntly. The peritoneal incision was extended laterally using blunt technique. The vesicle-uterine peritoneum over lower uterine segment was incised with curved Helms scissors and the bladder flap created bluntly. Scalpel was used to incise the lower uterine segment in a transverse fashion. The uterine incision was extended bluntly and the amniotic sac was ruptured with clear amniotic fluid noted. A single gloved hand was placed into the uterine cavity and the head was successfully delivered through the uterine incision followed by the trunk and extremities with the assistance of fundal pressure. The cord was doubly clamped and cut and the infant handed off to the waiting pediatric team. Cord blood was obtained and the placenta was extracted with a combination of fundal massage and gentle cord traction. The uterus was exteriorized cleared of all clots and debris and the uterine incision reapproximated with a running lock suture of 0 Vicryl followed by a second imbricating suture of 0 Vicryl. Uterine incision was noted be hemostatic. The uterus was returned to the abdomen and the paracolic gutters cleared of all clots and debris. The uterine incision along with the bladder flap and the abdominal wall were inspected and noted to be hemostatic. The rectus fascia was reapproximated with a running suture of 0 Vicryl. space within the subcutaneous tissue closed with interupted sutures of 2-0 Vicryl. The skin incision was reapproximated with a subcuticular closure of 4-0 Monocryl. Skin incision is and sealed with skin glue. The uterus was massaged for any remaining clots and debris's. The patient was transported to recovery area in stable condition. All sponge, lap, and needle counts correct x2.
--- NOTE | 2023-05-10 00:44 | W.ANESPOSTOP ---
Postoperative Evaluation Date, Time and Location Date Performed: 05/10/23 Time Performed: 00:44 Patient Location: Obstetrics Vital Signs Most Recent Imported Vital Signs: Most Recent Vital Signs Temp Pulse Resp BP 36.9 C 86 18 108/62 05/09/23 22:23 05/09/23 22:23 05/09/23 22:23 05/09/23 22:23 Assessment Mental Status: Awake (Alert & Oriented to Patient Baseline) Airway and Respiratory Function: Patent airway with normal (patient baseline) respiratory exam Cardiovascular Function: Hemodynamically Stable Hydration Status: Adequately Hydrated Nausea & Vomiting: No Nausea or Vomiting Pain: Pt. Denies Any Pain Peripheral Nerve Block: Patient did not receive a nerve block
[2023-05-10] MEDS: Ketorolac 30 MG/ML VIAL IVP ×2 (02:42→10:01)
[2023-05-10 07:07] LABS: Abs Immature Grans 0.15 10^3/uL (0.0-0.06); Absolute Lymphocyte Count 1.61 10^3/uL (1.2-3.4); Basophils % 0.2; HCT 32.6 % (36.0-46.0); HGB 10.8 g/dL (11.2-15.7); Immature Grans % 0.7; Lymphocytes % 7.9; MCH 30.6 pg (27.0-33.0); MCHC 33.1 % (32.0-36.0); MCV 92 fL (80-95); MPV 11.2 fL (8.0-11.0); Monocytes % 3.9; Neutrophils % 87.3; Platelet Count 321 10^3/uL (130-400); RBC 3.53 10^6/uL (3.93-5.22); RDW 12.7 % (11.7-14.6); RDW-SD 42.8 fL
[2023-05-10 07:17] LABS: Absolute Basophil Count 0.04 10^3/uL (0.0-0.2); Absolute Neutrophil Count 17.81 10^3/uL (1.2-6.7)
--- NOTE | 2023-05-10 08:20 | W.PM.OBPNV1 ---
Date of service: 05/10/23 Time of Service: 08:20 Assessment and Plan Assessment and plan (1) Encounter for maternal care for low transverse scar from repeat delivery: Status: Acute Assessment and plan: Patient comfortable. Stable vital signs breast-feeding successfully we will continue to to support her in the postop perio.d Subjective Subjective Interval history: Patient underwent a unscheduled elective repeat delivery on the evening of 05/09/2023. She delivered a viable male weighing 2930 g (6.7 pounds) Apgars 8/9. Surgery was uncomplicated her pain is well controlled. She is breast-feeding successfully. She does not feel very hungry this morning. Patient's Mood: Good baby status: Doing well and Nursing well [place] feeding status: Exclusively breast feeding Exam Physical Exam Vital signs: Temp Pulse Resp BP Pulse Ox 98.3 F 63 18 108/55 L 97 05/10/23 06:30 05/10/23 06:30 05/10/23 06:30 05/10/23 06:30 05/10/23 06:30 Vital Signs Reviewed: Yes Constitutional Constitutional: no acute distress HEENT Exam HEENT Exam: Normal Respiratory Exam Respiratory Exam: Normal Cardiovascular Exam Cardiovascular Exam: Normal Abdominal Exam Abdomen: Tender Fundal Exam Fundus: Below Umbilicus and Firm Rectal Exam Rectal Exam: Not Done Extremities Exam Extremity Exam: Normal Back/Spine/Pelvis Exam Back Exam: Normal Skin Exam Skin Exam: Normal Neurological Exam Neurological Exam: Normal Psychiatric Exam Psychiatric Exam: Normal Results Hemoglobin/Hematocrit: Hgb 10.8 g/dL (11.2-15.7) L 05/10/23 06:05 Hct 32.6 % (36.0-46.0) L 05/10/23 06:05 Abnormal Lab Findings: Abnormal Labs 05/09/23 05/10/23 22:34 06:05 WBC 11.54 H 20.40 H RBC 3.53 L Hgb 10.8 L Hct 32.6 L MPV 11.2 H Absolute Neutrophils 17.81 H
[2023-05-10] MEDS: Normal Saline Flush 10 ML SYR IVP (10:01)
[2023-05-10] MEDS: oxyCODONE 5 mg/Acetaminophen 325 mg TAB PO ×2 (13:09→18:32)
[2023-05-11] VITALS: BP 110/61; PULSE 72; O2SAT 99
[2023-05-11] MEDS: oxyCODONE 5 mg/Acetaminophen 325 mg TAB PO ×4 (03:42→19:27)
[2023-05-11 08:30] VITALS: BP 110/63; PULSE 68; RESP 16; TEMP 36.3
[2023-05-11] MEDS: Docusate Sodium 100 MG CAP PO (08:46)
[2023-05-11 12:00] VITALS: BP 115/66; PULSE 67; RESP 16; TEMP 36.7; O2SAT 99
[2023-05-11] MEDS: Ibuprofen 600 MG TAB PO (15:50)
[2023-05-11 16:00] VITALS: BP 106/60; PULSE 77; RESP 16; TEMP 36.7; O2SAT 98
[2023-05-11 22:30] VITALS: BP 110/63; PULSE 62; RESP 18; TEMP 36.8
[2023-05-12] MEDS: oxyCODONE 5 mg/Acetaminophen 325 mg TAB PO ×2 (04:35→09:34)
[2023-05-12] MEDS: Ibuprofen 600 MG TAB PO (04:36)
[2023-05-12 08:00] VITALS: BP 105/64; PULSE 84; RESP 18; TEMP 36.5; O2SAT 99
--- NOTE | 2023-05-12 08:18 | DSE_ITS ---
Date of service: 05/12/23 Time of Service: 08:18 DS: Diagnosis Discharge Diagnosis (1) Encounter for maternal care for low transverse scar from repeat delivery: Status: Acute Asessment and Plan: f/u in [facility] 2 and 6 weeks Discharge Plan Disposition Patient Disposition: Home Condition: Improving Discharge Details Reason For Visit: Rule Out Labor Admit Date/Time: 05/10/23 07:45 Admit Provider: Vandana Wu Attending Provider: Vandana Wu Primary Care Provider: Unknown,Unknown Home Meds and New Rx's Prescriptions: No Action No Known Home Meds Discharge Instructions Additional Instructions: you may shower with the skin glue in place. I have called a prescription for Ibuprofen and Percocet to your pharmacy. Take the Ibuprofen 600mg every 6 hours as needed for pain. Take the Percocet 5/325mg every 6hrs for strong pain not relieved by the Ibuprofen. Stand Alone Forms: BC Instructions, BC Discharge Ins catia Activity:: Activity as Tolerated Equipment/Supplies:: No Equipment Needed Diet:: As Tolerated Discharge Orders Discharge Orders: Discharge Order (Routine); Ordered 05/12/23 Ordered By: Vandana Wu OB:DS Summary Summary Delivery Method: Scheduled (Had surgery 48hrs before scheduled. Pt in labor) Episiotomy Description: None and Other Laceration Description: None complications OB DS: none Procedures: Repeat LTCS. Pt declined KAYLA. Declined tubal ligation. Discharged to home successfully breast feeding. Contraception Discussed Contraception Discussed: Yes (Pt's partner had vasectomy) Contraceptive Plan: Vasectomy, Gender-Baby A: Male weight: 6 lb 7.353 oz Status at Discharge Functional status at discharge: independent ambulation Overall status at discharge: patient is back to baseline Mental Status: mental status grossly normal Speech and Movement: speech and movement normal Mood: congruent mood Affect: normal affect Time Spent with Patient providing and/or coordinating discharge services: Less than 30 minutes Hospital Course Admitted @ 38w3d EGA two days prior to her scheduled RCS. She presented with contractions and cervical changes. Surgery was uncomplicated and she delivered viable male who will be named Haresh. Discharge to home POD3 successfully. Pain Exam Physical Exam Vital signs: Temp Pulse Resp BP Pulse Ox 98.3 F 62 18 110/63 98 05/11/23 22:30 05/11/23 22:30 05/11/23 22:30 05/11/23 22:30 05/11/23 16:00 Vital Signs Reviewed: Yes Narrative: Pt was admitted to with contractions and cervical change. She had a elective repeat LTCS on the evening of 05/09/23 with delivery of viable male infant who will be named Haresh. Wt 2930gm. Apgars 8/9. She was discharged to home of POD 3 successfully . Pt will f/u at [facility] in 2 weeks and 6week exam. Constitutional Constitutional: no acute distress Neck Exam Neck Exam: Normal Respiratory Exam Respiratory Exam: Normal Cardiovascular Exam Cardiovascular Exam: Normal Abdominal Exam Abdomen: Tender Comments: minimal along incision. Incision without erythema or induration. Fundal Exam Fundus: Firm Rectal Exam Rectal Exam: Not Done Extremities Exam Extremity Exam: Normal Back/Spine/Pelvis Exam Back Exam: Normal Skin Exam Skin Exam: Normal Neurological Exam Neurological Exam: Normal Psychiatric Exam Psychiatric Exam: Normal PFSH All Active Problems (Updated 05/12/23 @ 08:47 by Vandana Wu MD) Encounter for maternal care for low transverse scar from repeat delivery (Acute) 05/09/23. Elective repeat delivery. Declines vaginal after trial (Acute) Headache in (Acute) Elevated blood pressure complicating in second trimester, antepartum ( Acute) Nausea and vomiting during (Acute) Prior with demise (Acute) Transfusion history (Acute) 5 units after demise Family history of thyroid disease (Acute) Previous delivery affecting (Acute) (Acute) Medical History (Updated 05/12/23 @ 08:47 by Vandana Wu MD) Alcohol abuse, in remission Surgical History (Updated 05/09/23 @ 22:46 by Vandana Wu MD) Previous section Family History (Updated 11/09/22 @ 15:25 by Myra Sandhu CNM) Maternal Grandmother Thyroid disease Heart disease enlarged heart Father Heart disease Hepatitis Social History (Updated 05/12/23 @ 08:24 by Vandana Wu MD) Smoking/Tobacco Use Status: Unknown Smoking risk assessment performed?: Yes Alcohol Intake: former Number of Children: 2 History History 4 Para 1 Hx # Term Pregnancies Multiple births Hx # Pregnancies 1 Ectopic pregnancies AB induced Hx Number of Living Children 2 AB spontaneous Past Pregnancies Del. Date GA/Weeks # Preg Succ Route Wgt Sex Labor Lgth Anesth esia Location Prov [facility] 02/28/14 20 Yes No [facility] 09/15/17 40 No Yes 7 lb 11 oz Female P [facility] 05/09/23 38 No Yes 6 lb 7 oz Male aoc . declined KAYLA. Haresh Delivery Date: 02/28/14 Last Updated by: Leatha Barton MD alcoholic, demise (@17wks or 5mo?) with hemorrhage, transfused for 5 units Delivery Date: 09/15/17 Last Updated by: Leatha Barton MD Scheduled CS for CPD. Vertical skin incision, LTCS per op note. DS: Data Vitals/I&O Vitals and I&O: Vital Signs Temperature 98.3 F 05/11/23 22:30 Temperature Source Oral 05/11/23 22:30 Pulse 62 05/11/23 22:30 Pulse Rhythm Regular 05/11/23 20:00 Respiratory Rate 18 05/11/23 22:30 Blood Pressure 110/63 05/11/23 22:30 Blood Pressure Mean 78 05/11/23 22:30 Pulse Oximetry 98 05/11/23 16:00 Oxygen Delivery Method Room Air 05/09/23 22:23 Oxygen Flow Rate 0 05/09/23 22:23 Pain Level 3 05/12/23 04:36 Intake & Output 05/11/23 05/11/23 05/12/23 11:59 23:59 11:59 Output Total 300 / 300 Balance -300 / -300 Output: Urine 300 / 300 Other: Urine Color Pale
[2023-05-12] MEDS: Docusate Sodium 100 MG CAP PO (09:33)
--- NOTE | 2023-05-12 10:21 | W.PM.OBNL1 ---
Date of service: 05/11/23 Informed Consent Informed Consent: Section Delivery Objective Temp Pulse Resp BP Pulse Ox 97.7 F 84 18 105/64 99 05/12/23 08:00 05/12/23 08:00 05/12/23 08:00 05/12/23 08:00 05/12/23 08:00 Laboratory Results WBC 20.40 10^3/uL (4.4-10.8) H 05/10/23 06:05 RBC 3.53 10^6/uL (3.93-5.22) L 05/10/23 06:05 Hgb 10.8 g/dL (11.2-15.7) L 05/10/23 06:05 Hct 32.6 % (36.0-46.0) L 05/10/23 06:05 MCV 92 fL (80-95) 05/10/23 06:05 MCH 30.6 pg (27.0-33.0) 05/10/23 06:05 MCHC 33.1 % (32.0-36.0) 05/10/23 06:05 RDW 12.7 % (11.7-14.6) 05/10/23 06:05 Plt Count 321 10^3/uL (130-400) 05/10/23 06:05 MPV 11.2 fL (8.0-11.0) H 05/10/23 06:05 Immature Gran % 0.7 05/10/23 06:05 Neutrophils % 87.3 05/10/23 06:05 Lymphocytes % 7.9 05/10/23 06:05 Monocytes % 3.9 05/10/23 06:05 Eosinophils % 0.0 05/10/23 06:05 Basophils % 0.2 05/10/23 06:05 Nucleated RBC % 0.0 % (0.0-0.3) 05/10/23 06:05 Absolute Neutrophils 17.81 10^3/uL (1.2-6.7) H 05/10/23 06:05 Absolute Lymphocytes 1.61 10^3/uL (1.2-3.4) 05/10/23 06:05 Absolute Monocytes 0.80 10^3/uL (0.1-0.8) 05/10/23 06:05 Absolute Eosinophils 0.00 10^3/uL (0.0-0.7) 05/10/23 06:05 Absolute Basophils 0.04 10^3/uL (0.0-0.2) 05/10/23 06:05 Patient ABO/Rh O Positive 05/09/23 22:34 Antibody Screen NEGATIVE 05/09/23 22:34 Results Hemoglobin/Hematocrit: Hgb 10.8 g/dL (11.2-15.7) L 05/10/23 06:05 Hct 32.6 % (36.0-46.0) L 05/10/23 06:05 Abnormal Lab Findings: Abnormal Labs 05/09/23 05/10/23 22:34 06:05 WBC 11.54 H 20.40 H RBC 3.53 L Hgb 10.8 L Hct 32.6 L MPV 11.2 H Absolute Neutrophils 17.81 H
--- NOTE | 2023-05-12 10:25 | OBPPV_ITS ---
Date of service: 05/11/23 Time of Service: 10:28 Assessment and Plan Assessment and plan (1) Previous delivery affecting : Status: Acute Assessment and plan: POD2 RLTCS. Discharge home tomorrow. F/U in 2 and 6w at [facility]. Subjective Subjective Interval history: POD 2 rLTCS after pt presented in early labor 2 days prior to elective scheduled c/s. Post op course uncomplicated. Breast feeding successfully Patient comments: No complaints, Incisional pain (moderate. treated with NSAIDs and Percocet) and Tolerating diet Patient's Mood: Good [place] baby status: Doing well and Nursing well feeding status: Exclusively breast feeding Exam Physical Exam Vital signs: Temp Pulse Resp BP Pulse Ox 97.7 F 84 18 105/64 99 05/12/23 08:00 05/12/23 08:00 05/12/23 08:00 05/12/23 08:00 05/12/23 08:00 Vital Signs Reviewed: Yes Narrative: satisfactory healing. Constitutional Constitutional: no acute distress HEENT Exam HEENT Exam: Normal Neck Exam Neck Exam: Not Done Respiratory Exam Respiratory Exam: Normal Cardiovascular Exam Cardiovascular Exam: Normal Abdominal Exam Abdomen: Tender (incision clean dry and intact. skin glue in place) Fundal Exam Fundus: Below Umbilicus and Firm Rectal Exam Rectal Exam: Not Done Extremities Exam Extremity Exam: Normal Back/Spine/Pelvis Exam Back Exam: Normal (slightly tender at spinal site) Skin Exam Skin Exam: Normal Neurological Exam Neurological Exam: Normal Psychiatric Exam Psychiatric Exam: Normal Results Hemoglobin/Hematocrit: Hgb 10.8 g/dL (11.2-15.7) L 05/10/23 06:05 Hct 32.6 % (36.0-46.0) L 05/10/23 06:05 Abnormal Lab Findings: Abnormal Labs 05/09/23 05/10/23 22:34 06:05 WBC 11.54 H 20.40 H RBC 3.53 L Hgb 10.8 L Hct 32.6 L MPV 11.2 H Absolute Neutrophils 17.81 H
== END 2023-05-12 11:00 | disposition home or self-care (01) | DRG 788 ==
PROVIDERS: Admitting Provider Obstetrics & Gynecology Gynecology; Visit Provider Obstetrics & Gynecology Gynecology
PROC: 10D00Z1 Extraction of Products of Conception, Low, Open Approach (ICD-10-PCS; CPT 59514; principal; 2023-05-09 22:40)
DX: O34.211 Maternal care for low transverse scar from previous cesarean delivery (principal); Z37.0 Single live birth; Z3A.38 38 weeks gestation of pregnancy; O99.314 Alcohol use complicating childbirth; F10.11 Alcohol abuse, in remission
CPT/HCPCS: 59514; 36415; 85027; 86850; 86900; 86901; 85025; J0456; J0690; J1100; J1885; J2405; J3010

== ENCOUNTER 2023-12-19 18:56 | Emergency (ER) | payer MEDICAID, SELFPAY ==
[2023-12-19 19:06] VITALS: BP 113/66; PULSE 75; RESP 16; TEMP 36.4; O2SAT 100
== END 2023-12-19 19:47 ==
LOC: ER 19:14
DX: Z53.21 Procedure and treatment not carried out due to patient leaving prior to being seen by health care provider (principal)

== ENCOUNTER 2024-07-23 05:10 | Emergency (ER) | payer OTHER, SELFPAY ==
--- NOTE | 2024-07-23 05:14 | W.ED.GENAD ---
Discharge Plan Disposition Patient Disposition: Home Condition: Good Discharge Details Clinical Impression: Right-sided thoracic back pain Primary Care Provider: Unknown,Unknown ED Provider: Michael Braxton and New Rx's Prescriptions: Continued ibuprofen 600 mg tablet 600 mg PO Q6H PRN (Reason: pain) Qty: 60 1RF Discharge Instructions Instructions: Upper Back Pain ED Additional Instructions: You were seen for right sided upper back pain which is likely musculoskeletal in nature. You should follow-up with primary care especially if you continue to have episodes of significant pain. Return to the ED if you develop any type of shortness of breath, abdominal pain, persistent vomiting, fever, chest pain, other concerns. HPI General Mode of arrival: ambulatory. Date/Time Provider Initiated Documentation: 07/23/24 05:13. Limitations to Documentation: no limitations. Information obtained by: patient. HPI Narrative: Patient presents to ED with right-sided mid back pain that woke her up from sleep and is described as sharp and twisting in nature. She has had this on and off in the same area for a couple of months now. Pain is not described as pleuritic and she does not feel short of breath or have any type of chest pain. She denies abdominal pain but last night episode of pain which woke her up did cause nausea and vomiting. She denies any fever. She denies any urinary symptoms. 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 She did take acetaminophen couple of hours ago. Reports that the pain is still there though much better. Related Data Home Medications ?Medication ?Instructions ?Recorded ?Confirmed ibuprofen 600 mg tablet 600 mg PO Q6H PRN pain #60 tabs 05/12/23 07/23/24 Previous Rx's ?Medication ?Instructions ?Recorded ibuprofen 600 mg tablet 600 mg PO Q6H PRN pain #60 tabs 05/12/23 Allergies Allergy/AdvReac Type Severity Reaction Status Date / Time No Known Allergies Allergy Verified 07/23/24 05:29 General VLADIMIR: 4 Review of Systems Narrative: Per HPI Exam Narrative Exam Narrative: Const: WDWN female in NAD. VS per triage. HEENT: NC/AT. Normal facial exam. Neck: Supple. Trachea midline. Lungs: Normal respiratory effort. Lungs are clear. Cor: RRR without murmur. Good radial pulses. GI: Soft/ND/NT. Back: No CVAT. Mild right mid thoracic tenderness. Neuro: A+O x 3. Normal speech, mentation, gait. Cranial nerves II - XII grossly intact. No gross motor or sensory deficit. Ext: No C/C/E. Medical Decision Making Patient presenting to ED with right mid thoracic back pain that woke her from sleep. Described as sharp and twisting but not really worse with movement and definitely not associated with breathing. Denies abdominal pain but had vomiting with this pain tonight. Has had intermittent episodes similar to this for a couple of months now. While it is quite likely related to muscle spasm nausea and vomiting tonight suggest possible colic whether renal or biliary. There is no pleuritic component and no respiratory symptoms, not concerned for PE and she PERCs out anyway. After discussion with the patient regarding possible etiologies have elected to start IV and check laboratory studies, urine. Will give ketorolac for residual pain. Patient's laboratory studies are reassuring with no significant abnormalities and specifically normal lipase and liver function. Urinalysis with blood present but she is on her menstrual cycle currently. There are no white cells noted. Pain much improved after ketorolac. Will plan discharge home to follow-up with primary care especially if continued episodes. Suggest trying ibuprofen in the future. Return precautions provided. Lab Data Lab results reviewed: Yes I reviewed the patient's lab results. PFSH All Active Problems (Updated 07/23/24 @ 06:53 by Michael Braxton MD) Right-sided thoracic back pain (Acute) Alcohol abuse, in remission (Acute) Prior with demise (Acute) Transfusion history (Acute) 5 units after demise Family history of thyroid disease (Acute) Medical History No significant past medical history Surgical History Previous section 05/09/23. elective rLTCS at 38w3d after presenting in early active labor. Family History (Updated 11/09/22 @ 15:25 by Myra Sandhu CNM) Maternal Grandmother Thyroid disease Heart disease enlarged heart Father Heart disease Hepatitis Social History (Updated 05/12/23 @ 08:24 by Vandana Wu MD) Smoking/Tobacco Use Status: Unknown Smoking risk assessment performed?: Yes Alcohol Intake: former Number of Children: 2 History History 3 Para 1 Hx # Term Pregnancies Multiple births Hx # Pregnancies 1 Ectopic pregnancies AB induced Hx Number of Living Children 2 AB spontaneous Past Pregnancies Del. Date GA/Weeks # Preg Succ Route Wgt Sex Labor Lgth Anesthesia Location [facility] 02/28/14 20 Yes No [facility] 09/15/17 40 No Yes 3486.991 g Female [facility] 05/09/23 38 No Yes 2920.001 g Male aoc. declined KAYLA. Haresh Delivery Date: 02/28/14 Last Updated by: Leatha Barton MD alcoholic, demise (@17wks or 5mo?) with hemorrhage, transfused for 5 units Delivery Date: 09/15/17 Last Updated by: Leatha Batron MD Scheduled CS for CPD. Vertical skin incision, LTCS per op note.
[2024-07-23 05:16] VITALS: BP 131/81; PULSE 92; RESP 16; TEMP 35.8; O2SAT 99
[2024-07-23] MEDS: Ketorolac 30 MG/ML VIAL IVP (05:49)
[2024-07-23 05:55] LABS: Abs Immature Grans 0.05 10^3/uL (0.0-0.06); Absolute Basophil Count 0.04 10^3/uL (0.0-0.2); Absolute Eosinophil Count 0.02 10^3/uL (0.0-0.7); Absolute Neutrophil Count 10.37 10^3/uL (1.2-6.7); Basophils % 0.3 %; Eosinophils % 0.2 %; HCT 40.7 % (36.0-46.0); HGB 13.5 g/dL (11.2-15.7); Immature Grans % 0.4 %; Lymphocytes % 9.5 %; MCH 30.1 pg (27.0-33.0); MCHC 33.2 % (32.0-36.0); MCV 91 fL (80-95); MPV 10.2 fL (8.0-11.0); Monocytes % 2.8 %; Neutrophils % 86.8 %; Platelet Count 302 10^3/uL (130-400); RBC 4.48 10^6/uL (3.93-5.22); RDW-SD 43.2 fL; WBC 11.95 10^3/uL (4.4-10.8)
[2024-07-23 06:00] LABS: Absolute Lymphocyte Count 1.14 10^3/uL (1.2-3.4); Absolute Monocyte Count 0.33 10^3/uL (0.1-0.8)
[2024-07-23 06:04] LABS: Bilirubin Small (Negative); Blood Large (Negative); Clarity Sl Cloudy (Clear); Glucose 100 mg/dL (Negative); Ketones Trace mg/dL (Negative); Leukocyte Esterase Negative (Negative); Nitrite Negative (Negative); Urobilinogen 0.2 mg/dL (Up to 0.2); pH 5.5 (5-8)
[2024-07-23 06:10] LABS: Bacteria Rare HPF (Negative); C & S Indicated? No; Casts Negative LPF (Negative); Crystals Negative HPF (Negative); Epithelial Cells Negative HPF (Negative); Mucus Trace (Negative); WBC 0-2 HPF (0-5)
[2024-07-23 06:13] LABS: ALT 18 U/L (14-59); AST 15 U/L (15-37); Alkaline Phosphatase 68 U/L (46-116); Anion Gap 9.5 mmol/L (3-11); BUN 14 mg/dL (7-18); Bilirubin, Total 0.31 mg/dL (0.2-1.0); CO2 25.5 mmol/L (21.0-32.0); CREATININE 0.7 mg/dL (0.55-1.02); Calcium 9.2 mg/dL (8.5-10.1); Chloride 105 mmol/L (98-107); Estimated GFR 120.74 (mL/min/1.73m2); Glucose 118 mg/dL (74-106); Potassium 3.7 mmol/L (3.5-5.1); Sodium 140 mmol/L (136-145); Total Protein 7.7 g/dL (6.4-8.2)
[2024-07-23 06:46] LABS: Lipase 35 U/L (16-77)
== END 2024-07-23 07:00 | disposition home or self-care (01) ==
PROVIDERS: Emergency Provider Emergency Medicine
DX: M54.6 Pain in thoracic spine (principal)
CPT/HCPCS: 36415; 80053; 81025; 83690; 96374; 99284; 81003; 81015; 85025; 99283; J1885

== ENCOUNTER 2025-07-20 11:49 | Emergency (ER) | payer SELFPAY ==
[2025-07-20 11:53] VITALS: BP 121/83; PULSE 96; RESP 13; TEMP 37.2; O2SAT 98
--- NOTE | 2025-07-20 12:00 | DI.RAD_ITS ---
Exam(s) XR SHOULDER RT COMPLETE 2+V EXAM: XR SHOULDER RT COMPLETE 2+V CLINICAL HISTORY: right shoulder pain. TECHNIQUE: 2D digital imaging was performed of the right shoulder. Seven images were obtained. AP, Grashey, Y-view and axillary views were obtained. COMPARISON: No exams were available for comparison FINDINGS: BONES: No acute fracture is present. No bony destructive lesion is seen. JOINTS: No dislocation present. SOFT TISSUE: Normal. IMPRESSION: 1. Unremarkable radiographs of the right shoulder. 2. The preliminary [facility] report was reviewed. DATA REPOSITORY: RADIATION DOSE DELIVERED:
--- NOTE | 2025-07-20 12:08 | ED.GENADUL_ITS ---
Discharge Plan Disposition Patient Disposition: Home Discharge Details Clinical Impression: Acute pain of right shoulder Primary Care Provider: Unknown,Unknown ED Provider: Serafin Senior Home Meds and New Rx's Prescriptions: New acetaminophen [Tylenol] 325 mg tablet 975 mg PO ONCE PRNQty: 60 0RF ibuprofen 600 mg tablet 600 mg PO Q6H PRNQty: 30 0RF Discharge Instructions Instructions: Shoulder Pain (DC) Additional Instructions: As discussed, I believe that you injured your rotator cuff or your shoulder labrum. As such, please use the prescribed tylenol and ibuprofen to manage your pain. You have been provided a shoulder sling for comfort. However, it is important to routinely (at least 4 times a day) mobilize your shoulder to prevent it from developing frozen shoulder syndrome. Please follow-up with your primary care provider regarding your visit to the emergency department today. Be sure to discuss results of all test performed here today to include radiology, and laboratory testing as well as results for any pending cultures. Should your symptoms worsen, or if you develop new concerning symptoms, please return immediately emergency department for further evaluation. Stand Alone Forms: Work Release HPI General Date/Time Provider Initiated Documentation: 07/20/25 11:51 . 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 Pain with movement and specific maneuvers. Differential Diagnosis: - SLAP injury: Suspected due to mechanism and pain with specific movements. Plan: Order x-ray, rest, avoid weight-bearing, pain management, ice. - Fracture/dislocation: Unlikely based examination history ED Course: - Ordered right shoulder x-ray. - Administered pain medication. Final Assessment: Suspected SLAP injury or rotator cuff tear. Ordered x-ray, administered pain medication, advised rest and ice. Clinical Impression: - Right shoulder injury - Possible rotator cuff tear Disposition: Follow-Up: Rest, avoid weight-bearing, apply ice, use pain medication, work note provided. Patient Education: Advised rest, avoid weight-bearing, apply ice, use pain medication, work note provided. This document was created with assistance from [employer]. The patient consented to its use. I was including the overlying HPI: 29-year-old female, presents with an acute right shoulder injury. This morning, while assisting a resident, she experienced an audible pop in her right shoulder, followed by severe pain upon movement, which subsides at rest. The p ain exacerbates with arm elevation or when pressure is applied to the abdomen. The patient reports no known allergies or other medical issues. ROS: Negative besides as mentioned above Exam: Vital signs: Reviewed. General Appearance: Alert and oriented. No acute distress. HEENT: NCAT, EOMI, not icteric. External ears normal. No rhinorrhea. Moist mucous membranes. Neck: Supple, full range of motion, no observable masses, No meningeal sign. Respiratory: No Respiratory distress. No tachypnea. Cardiovascular: RRR, no edema. Gastrointestinal: Soft, nondistended, No rebound tenderness. Back: No midline tenderness to palpation or palpable step-offs of the C/T/L spine. Musculoskeletal: Right shoulder pain with external and internal rotation, tenderness on palpation of the biceps insertion, pain with resisted movements. Skin: Warm and dry, no rash. Neurological: Normal Gait, Grossly intact. Psychiatric: Appropriate for situation. Radiology: X-ray right shoulder 3 view: No acute fracture or dislocation as read by me. Related Data Home Medications ?Medication ?Instructions ?Recorded ?Confirmed acetaminophen 325 mg tablet 975 mg (3 x 325 mg) PO ONC E PRN 07/20/25 (Tylenol) #60 tabs ibuprofen 600 mg tablet 600 mg PO Q6H PRN #30 tabs 0 07/20/25 Previous Rx's ?Medication ?Instructions ?Recorded acetaminophen 325 mg tablet 975 mg (3 x 325 mg) PO ONC E PRN 07/20/25 (Tylenol) #60 tabs ibuprofen 600 mg tablet 600 mg PO Q6H PRN #30 tabs 0 07/20/25 Allergies Allergy/AdvReac Type Severity Reaction Status Date / Time No Known Allergies Allergy Verified 07/20/25 11:57 General Stated Complaint: Orthopedic VLADIMIR: 4 Course Vital Signs Vital signs: Vital Signs Temperature 37.2 C 07/20/25 11:53 Pulse 96 H 07/20/25 11:53 Respiratory Rate 13 07/20/25 11:53 Blood Pressure 121/83 07/20/25 11:53 Pulse Oximetry 98 07/20/25 11:53 Temperature 37.2 C 07/20/25 11:53 Temperature Source Tympanic 07/20/25 11:53 Pulse 96 H 07/20/25 11:53 Respiratory Rate 13 07/20/25 11:53 Blood Pressure 121/83 07/20/25 11:53 Blood Pressure Position Sitting 07/20/25 11:53 Pulse Oximetry 98 07/20/25 11:53 Oxygen Delivery Method Room Air 07/20/25 11:53 Oxygen Flow Rate 0 07/20/25 11:53 Pain Level 6 07/20/25 11:53 PFSH All Active Problems (Updated 07/20/25 @ 12:10 by Serafin Senior MD) Acute pain of right shoulder (Acute) Alcohol abuse, in remission (Acute) Prior with demise (Acute) Transfusion history (Acute) 5 units after demise Family history of thyroid disease (Acute) Medical History No significant past medical history Surgical History Previous section 05/09/23. elective rLTCS at 38w3d after presenting in early active labor. Family History (Updated 11/09/22 @ 15:25 by Myra Sandhu CNM) Maternal Grandmother Thyroid disease Heart disease enlarged heart Father Heart disease Hepatitis Social History (Updated 05/12/23 @ 08:24 by Vandana Wu MD) Smoking/Tobacco Use Status: Unknown Smoking risk assessment performed?: Yes Alcohol Intake: former Number of Children: 2 History History 3 Para 1 Hx # Term Pregnancies Multiple births Hx # Pregnancies 1 Ectopic pregnancies AB induced Hx Number of Living Children 2 AB spontaneous Past Pregnancies Del. Date GA/Weeks # Preg Succ Route Wgt Sex Labor Lgth Anesth esia Location Prov [facility] 02/28/14 20 Yes No [facility] 09/15/17 40 No Yes 3486.991 g Female P [facility] 05/09/23 38 No Yes 2920.001 g Male ao c. declined KAYLA. Haresh Delivery Date: 02/28/14 Last Updated by: Leatha Barton MD alcoholic, demise (@17wks or 5mo?) with hemorrhage, transfused for 5 units Delivery Date: 09/15/17 Last Updated by: Leatha Barton MD Scheduled CS for CPD. Vertical skin incision, LTCS per op note.
[2025-07-20] MEDS: Ibuprofen 600 MG TAB PO (12:21)
[2025-07-20] MEDS: Acetaminophen 500 MG TAB 1000 MG PO (12:21)
[2025-07-20] MEDS: oxyCODONE 5 MG TAB PO (13:44)
--- NOTE | 2025-07-20 14:20 | DI.[facility]_ITS ---
PROCEDURE INFORMATION: Exam: XR Right Shoulder Exam date and time: 07/20/2025 12:54 PM Age: 29 years old Clinical indication: Pain; Shoulder; Right TECHNIQUE: Imaging protocol: Radiologic exam of the right shoulder. Views: 2 or more views. COMPARISON: No relevant prior studies available. FINDINGS: Bones/joints: Unremarkable. Soft tissues: Unremarkable. IMPRESSION: No acute bony findings. If clinical symptoms persist recommend followup film in 7-10 days. Dictated and Authenticated by: Rhonda Carter MD. Orderin Parrish Betancourt MD
--- NOTE | 2025-07-28 10:45 | NUR.NOTE ---
Tong Cuellar; states on HIPPA, for Hannah that she was seen last weekend. Her work told her she needs a follow up appt. and she has no PCP. Consulted with Munira Dos Santos, RN/Charge; and was told they can come to the ED or be seen at [facility] tomorrow. He stated he understood. Tong Cuellar [phone] Nursing Note:
== END 2025-07-20 14:09 | disposition home or self-care (01) ==
PROVIDERS: Emergency Provider General Practice
DX: M25.511 Pain in right shoulder (principal)
CPT/HCPCS: 99283; 73030

== ENCOUNTER 2025-07-29 15:14 | Emergency (ER) | payer SELFPAY ==
[2025-07-29 15:16] VITALS: BP 112/73; PULSE 86; RESP 18; TEMP 36.7; O2SAT 97
--- NOTE | 2025-07-29 15:49 | W.ED.GENAD ---
Discharge Plan Disposition Patient Disposition: Home Condition: Good Discharge Details Clinical Impression: Acute pain of right shoulder, Constipation Primary Care Provider: Unknown,Unknown ED Provider: Lin Booth Home Meds and New Rx's Prescriptions: Held ibuprofen 600 mg tablet 600 mg PO Q6H PRNQty: 30 0RF Hold Instructions: Resume on 08/02/25. please hold until your stomach is feeling better, then take 600 mg (3 tablets) no more than every 8 hours, with food No Action acetaminophen [Tylenol] 325 mg tablet 975 mg PO ONCE PRNQty: 60 0RF Discharge Instructions Instructions: Constipation in adults, Shoulder Pain ED Additional Instructions: A referral to physical therapy has been made. Please call them first thing in the morning to schedule an appointment for further evaluation/management of your shoulder injury, which is likely due to a rotator cuff or labral tear. A referral has also been placed to help you establish care with a primary care provider. Please continue to use Tylenol as needed for discomfort. I recommend that while you have some stomach upset you avoid ibuprofen. Please do not drink any alcohol while you are taking Tylenol or ibuprofen. For constipation I recommend that you take MiraLAX 1 capful in full 8 ounces of water, juice, tea or coffee daily until you have regular soft stools. Return to emergency care if you develop new color change/numbness to the arm, fevers associate with arm pain, severe abdominal pain, uncontrollable vomiting, blood in your stool, or if you are very worried and need to be rechecked again immediately Stand Alone Forms: Work Release Referrals: Care Management [Provider Group] [facility] [Provider Group, Physical Therapy] [facility] General Date/Time Provider Initiated Documentation: 07/29/25 15:16. HPI Narrative: Hannah is a 29-year-old female who presents to the emergency department today for recheck of her right shoulder pain. She does not have a primary care provider so has not been able to follow-up outpatient. Experienced a sudden popping sensation in her shoulder while providing care on 07/13/2025, causing difficulty in movement to the right shoulder, especially with lifting the arm. She was evaluated on 07/20/2025, diagnosed with acute shoulder pain likely SLAP tear/rotator cuff injury. She was given a sling and told to do mobilization exercises, has been on light duty at work since then. She reports that overall the pain has improved but discomfort persists with driving, turning, lifting, or lying on the affected side. Denies other associated injuries, neck pain, back pain, difficulty breathing, fever/chills, redness, swelling, or numbness in the arm. 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 She reports that she has been taking Tylenol ibuprofen every 6 hours for pain with good relief of symptoms. However she reports that she has also noticed associated constipation with harder stools; denies abdominal pain, nausea/vomiting, change in p.o. intake, change in bladder function, or blood in stool. Related Data Home Medications ?Medication ?Instructions ?Recorded ?Confirmed acetaminophen 325 mg tablet 975 mg (3 x 325 mg) PO ONCE PRN 07/20/25 07/29/25 (Tylenol) #60 tabs ibuprofen 600 mg tablet 600 mg PO Q6H PRN #30 tabs 07/20/25 07/29/25 Held on 07/29/25. Instructions: Resume on 08/02/25. please hold until your stomach is feeling better, then take 600 mg (3 tablets) no more than every 8 hours, with food Previous Rx's ?Medication ?Instructions ?Recorded acetaminophen 325 mg tablet 975 mg (3 x 325 mg) PO ONCE PRN 07/20/25 (Tylenol) #60 tabs ibuprofen 600 mg tablet 600 mg PO Q6H PRN #30 tabs 07/20/25 Held on 07/29/25. Instructions: Resume on 08/02/25. please hold until your stomach is feeling better, then take 600 mg (3 tablets) no more than every 8 hours, with food Allergies Allergy/AdvReac Type Severity Reaction Status Date / Time No Known Allergies Allergy Verified 07/29/25 15:24 General Stated Complaint: Recheck VLADIMIR: 4 Exam Narrative Exam Narrative: General Appearance: Normal. Alert and oriented, no acute distress Vital signs: Within normal limits. Back, Musculoskeletal: Right shoulder: Limited ROM, able to lift arm to 90 degrees with pain. Pain elicited with empty can test and Apley scratch maneuver. No erythema, abrasions, ecchymosis, or edema to arm. Radial pulses intact GI: Abdomen is soft, nondistended, nontender to palpation. Neurological: Sensation grossly intact upper extremities, 5/5 muscle strength to upper extremities. Skin: Warm and dry, no rash. Psychiatric: Normal. Course Vital Signs Vital signs: Vital Signs Temperature 36.7 C 07/29/25 15:16 Pulse 86 07/29/25 15:16 Respiratory Rate 18 07/29/25 15:16 Blood Pressure 112/73 07/29/25 15:16 Pulse Oximetry 97 07/29/25 15:16 Temperature 36.7 C 07/29/25 15:16 Temperature Source Oral 07/29/25 15:16 Pulse 86 07/29/25 15:16 Respiratory Rate 18 07/29/25 15:16 Blood Pressure 112/73 07/29/25 15:16 Blood Pressure Position Sitting 07/29/25 15:16 Pulse Oximetry 97 07/29/25 15:16 Oxygen Delivery Method Room Air 07/29/25 15:16 Oxygen Flow Rate 0 07/29/25 15:16 Comment no pain if her arm is not moving, but with activities the pain increases to 7/10 07/29/25 15:16 Medical Decision Making Initial Assessment: 29-year-old female with shoulder pain following injury during care duties. Pain exacerbated by driving, lifting, and lying on the affected side. No other injuries or symptoms. Differential Diagnosis: - Partial tear of shoulder muscle or tendon: Injury during care duties, pain with movement, referral to physical therapy for evaluation and strengthening exercises. No red flags concerning for septic joint or neurovascular compromise requiring additional imaging or labs at this time. - Constipation: Associated with ibuprofen use, advised to reduce ibuprofen intake, use Tylenol, and take MiraLAX to soften stool. No red flags concerning for acute abdomen, dehydration/electrolyte imbalances, or other serious etiology requiring diagnostic imaging or blood work at this time. ED Course: - Referral to physical therapy for shoulder evaluation and exercises. - Work note provided limiting arm use and prohibiting lifting. - Advised to continue using sling and mobilize arm by dangling. - Recommended reducing ibuprofen intake to three times daily with food. - Suggested using MiraLAX in 8 ounces of liquid daily until normal soft stools are achieved. I did review ED visit note on 07/20/[address] Senior. Final Assessment: Shoulder pain likely due to partial tear, managed with physical therapy and limited arm use. Constipation addressed by adjusting medication and using MiraLAX. Clinical Impression: - Partial tear of shoulder muscle or tendon - Constipation Follow-Up: Referral to physical therapy. Referral to PCP for ongoing management and insurance assistance. Patient Education: Advised to reduce ibuprofen intake, use Tylenol, and take MiraLAX for constipation. Instructed on proper use of sling and arm mobilization techniques. Patient consented to the use of ELLIE PFSH All Active Problems (Updated 07/29/25 @ 15:54 by Lin Vazquez) Constipation (Acute) Acute pain of right shoulder (Acute) Alcohol abuse, in remission (Acute) Prior with demise (Acute) Transfusion history (Acute) 5 units after demise Family history of thyroid disease (Acute) Medical History No significant past medical history Surgical History Previous section 05/09/23. elective rLTCS at 38w3d after presenting in early active labor. Family History (Updated 11/09/22 @ 15:25 by Myra Sandhu CNM) Maternal Grandmother Thyroid disease Heart disease enlarged heart Father Heart disease Hepatitis Social History (Updated 05/12/23 @ 08:24 by Vandana Wu MD) Smoking/Tobacco Use Status: Current every day Tobacco Type: cigarettes Smoking risk assessment performed?: Yes Alcohol Intake: former Drug use: Never Substance use type: does not use Housing: house Number of Children: 2 Do you feel safe at home: Yes Do you feel safe in your relationship?: Yes History History 3 Para 1 Hx # Term Pregnancies Multiple births Hx # Pregnancies 1 Ectopic pregnancies AB induced Hx Number of Living Children 2 AB spontaneous Past Pregnancies Del. Date GA/Weeks # Preg Succ Route Wgt Sex Labor Lgth Anesthesia Location Prov Compl 02/28/[address] [facility] 09/15/17 40 No Yes 3486.[address] [facility] 05/09/23 38 No Yes 2920.001 g Male aoc. declined [facility]. [facility] Delivery Date: 02/28/14 Last Updated by: Leatha Barton MD alcoholic, demise (@17wks or 5mo?) with hemorrhage, transfused for 5 units Delivery Date: 09/15/17 Last Updated by: Leatha Barton MD Scheduled CS for CPD. Vertical skin incision, LTCS per op note.
== END 2025-07-29 16:02 | disposition home or self-care (01) ==
PROVIDERS: Emergency Provider Nurse Practitioner Family
DX: M25.511 Pain in right shoulder (principal); K59.00 Constipation, unspecified
CPT/HCPCS: 99282

== ENCOUNTER 2025-09-15 11:39 | Emergency (ER) | payer OTHER, SELFPAY ==
[2025-09-15 11:45] VITALS: BP 116/70; PULSE 78; RESP 16; TEMP 36.4; O2SAT 98
--- NOTE | 2025-09-15 13:05 | W.ED.GENAD ---
Discharge Plan Disposition Patient Disposition: Home Condition: Stable Discharge Details Clinical Impression: Right shoulder injury Primary Care Provider: Unknown,Unknown ED Provider: Joel Rai Home Meds and New Rx's Prescriptions: No Action acetaminophen [Tylenol] 325 mg tablet 975 mg PO ONCE PRNQty: 60 0RF ibuprofen 600 mg tablet 600 mg PO Q6H PRNQty: 30 0RF Discharge Instructions Additional Instructions: Nonemergent MRI of the shoulder is indicated. Please follow-up with occupational medicine or a primary care physician. Express care or urgent care may be an option. Return to the emergency department immediately for any worsening or new concerning symptoms. Stand Alone Forms: Portal Information Referrals: [facility] [Provider Group] [facility] [REPORT RECIPIENT, Unknown] Discharge Data Discharge Date/Time-TO BE ENTERED AT DEPARTURE: 09/15/25 13:19 HPI General Mode of arrival: ambulatory. Date/Time Provider Initiated Documentation: 09/15/25 11:55. Limitations to Documentation: no limitations. Information obtained by: patient. HPI Narrative: HISTORY OF PRESENT ILLNESS 29-year-old female with right shoulder injury presenting with ongoing symptoms despite physical therapy specifically here requesting MRI of the right shoulder. Sustained right shoulder injury on 07/20/2025 during work shift, necessitating emergency visit. X-ray was normal. Referred to physical therapy for 6 weeks. Therapist recommending MRI. Reports no current pain but experiences popping sensation during movement and occasional pressure with heavy lifting. Related Data Home Medications Medication Instructions Recorded Confirmed acetaminophen 325 mg tablet 975 mg (3 x 325 mg) PO ONCE PRN 07/20/25 09/15/25 (Tylenol) #60 tabs ibuprofen 600 mg tablet 600 mg PO Q6H PRN #30 tabs 07/20/25 09/15/25 Held on 07/29/25. Instructions: Resume on 08/02/25. please hold until your stomach is feeling better, then take 600 mg (3 tablets) no more than every 8 hours, with food Previous Rx's Medication Instructions Recorded acetaminophen 325 mg tablet 975 mg (3 x 325 mg) PO ONCE PRN 07/20/25 (Tylenol) #60 tabs ibuprofen 600 mg tablet 600 mg PO Q6H PRN #30 tabs 07/20/25 Held on 07/29/25. Instructions: Resume on 08/02/25. please hold until your stomach is feeling better, then take 600 mg (3 tablets) no more than every 8 hours, with food Allergies Allergy/AdvReac Type Severity Reaction Status Date / Time No Known Allergies Allergy Verified 09/15/25 11:48 General Stated Complaint: Orthopedic VLADIMIR: 4 Review of Systems Musculoskeletal Musculoskeletal: Reports as per HPI Exam Const General: cooperative and no acute distress Course Vital Signs Vital signs: Vital Signs Temperature 36.4 C L 09/15/25 11:45 Pulse 78 09/15/25 11:45 Respiratory Rate 16 09/15/25 11:45 Blood Pressure 116/70 09/15/25 11:45 Pulse Oximetry 98 09/15/25 11:45 Temperature 36.4 C L 09/15/25 11:45 Temperature Source Oral 09/15/25 11:45 Pulse 78 09/15/25 11:45 Respiratory Rate 16 09/15/25 11:45 Blood Pressure 116/70 09/15/25 11:45 Blood Pressure Position Sitting 09/15/25 11:45 Pulse Oximetry 98 09/15/25 11:45 Oxygen Delivery Method Room Air 09/15/25 11:45 Oxygen Flow Rate 0 09/15/25 11:45 Pain Level 0 09/15/25 11:45 Medical Decision Making ASSESSMENT AND PLAN 29-year-old female with right shoulder injury from work in July. Persistent pain and popping sensation despite weeks of physical therapy. X-ray on 07/20/2025 unremarkable. Physical therapist recommends MRI. Differential Diagnosis: - Ligamentous injury ED Course: - Reviewed past medical record. - Discussed symptoms and history with patient. - Explained inability to order MRI in ED. - Referral for primary care provider to order MRI. Final Assessment: Reviewed medical record and discussed symptoms with patient. Explained MRI limitations in ED. Referral for primary care provider for MRI order. Clinical Impression: - Right shoulder injury - Possible ligamentous injury Disposition: - Follow-Up: Referral to primary care provider for MRI. Check with worker's worker's compensation claims examiner for preferred providers. Consider urgent care with occupational medicine. Patient Education: Explained need for MRI and referral process. Discussed limitations of ED in ordering outpatient MRI. This document was written with the assistance of ELLIE Wallace. The patient consented to its use. PFSH All Active Problems (Updated 09/15/25 @ 13:06 by Joel Rai MD) Right shoulder injury (Acute) Alcohol abuse, in remission (Acute) Prior with demise (Acute) Transfusion history (Acute) 5 units after demise Family history of thyroid disease (Acute) Medical History No significant past medical history Surgical History Previous section 05/09/23. elective rLTCS at 38w3d after presenting in early active labor. Family History (Updated 11/09/22 @ 15:25 by Myra Sandhu CNM) Maternal Grandmother Thyroid disease Heart disease enlarged heart Father Heart disease Hepatitis Social History (Updated 05/12/23 @ 08:24 by Vandana Wu MD) Smoking/Tobacco Use Status: Current every day Tobacco Type: cigarettes Smoking risk assessment performed?: Yes Alcohol Intake: former Drug use: Never Substance use type: does not use Housing: house Number of Children: 2 Do you feel safe at home: Yes Do you feel safe in your relationship?: Yes History History 3 Para 1 Hx # Term Pregnancies Multiple births Hx # Pregnancies 1 Ectopic pregnancies AB induced Hx Number of Living Children 2 AB spontaneous Past Pregnancies Del. Date GA/Weeks # Preg Succ Route Wgt Sex Labor Lgth Anesthesia Location [facility] 02/28/14 20 Yes No [facility] 09/15/17 40 No Yes 3486.991 g Female [facility] 05/09/23 38 No Yes 2920.001 g Male aoc. declined [facility] Delivery Date: 02/28/14 Last Updated by: Leatha Barton MD alcoholic, demise (@17wks or 5mo?) with hemorrhage, transfused for 5 units Delivery Date: 09/15/17 Last Updated by: Leatha Barton MD Scheduled CS for CPD. Vertical skin incision, LTCS per op note.
== END 2025-09-15 13:19 | disposition home or self-care (01) ==
PROVIDERS: Emergency Provider Student in an Organized Health Care Education/Training Program
DX: S49.81XD Other specified injuries of right shoulder and upper arm, subsequent encounter (principal); X58.XXXD Exposure to other specified factors, subsequent encounter; Y99.0 Civilian activity done for income or pay
CPT/HCPCS: 99282; 99281